=== PATIENT | male | born 1945 | race Caucasian/White ===

== ENCOUNTER 2018-05-18 23:07 | Inpatient (IN) | payer OTHER ==
[2018-05-18] MEDS ORDERED: CEFEPIME 2 GM VIAL ONE (23:43)
[2018-05-18] MEDS ORDERED: NA CHLORIDE 0.9% 250 ML ONE (23:43)
[2018-05-18] MEDS ORDERED: VANCOMYCIN 1 GM/VIAL ONE (23:43)
--- NOTE | 2018-05-18 23:44 | EDPHYS ---
Physician Documentation [facility] Name: Lorenzo Jim Age: 73 yrs Sex: Male : 1945 Arrival Date: 05/18/2018 Time: 23:07 Bed 3 Private MD: ED Physician Aamir John HPI: 05/18 23:36 This 73 yrs old Male presents to ER via Unassigned with complaints of CPR. [facility] 23:36 Preceding the arrest, the patient collapsed, was dyspneic. The arrest occurred at [facility]. Pre-hospital course: The arrest was witnessed Bystanders at the scene performed CPR. EMS care prior to arrival: initiation of ACLS, peripheral IV, oxygen, 0 minutes elapsed prior to ACLS. It is unknown whether or not the patient has had similar symptoms in the past. Historical: - Allergies: 05/19 00:11 No Known Allergies; fc - Home Meds: 00:36 Amaryl 2 mg Oral tab 1 tab once daily [Active]; aspirin 81 mg Oral chew 1 tab once fc daily [Active]; Coreg 12.5 mg Oral tab 1 tab 2 times per day [Active]; Cozaar 50 mg Oral tab 1 tab once daily [Active]; hydrochlorothiazide 12.5 mg Oral cap 1 cap once daily [Active]; Lantus 100 unit/mL Sub-Q soln 10 unit daily [Active]; Lasix 40 mg Oral tab 1 tab once daily [Active]; lisinopril 40 mg Oral tab 1 tab once daily [Active]; metformin 500 mg Oral tab 1 tab 2 times per day [Active]; Norvasc 2.5 mg Oral tab 1 tab once daily [Active]; potassium chloride 20 mEq Oral TbER 1 tab once daily [Active]; Xarelto 20 mg oral tab 1 tab once daily [Active]; - PMHx: 00:11 CHF; Hypertension; Atrial Fib; Pneumonia; Diabetes - IDDM; fc - Immunization history:: Adult Immunizations unknown. - Social history:: Smoking status: unknown. - Family history:: not pertinent. - Ebola Screening: : Unable to complete screening because. ROS: 05/18 23:36 Cardiovascular: Positive for pea. [facility] Respiratory: Positive for shortness of breath, at rest. Unable to obtain ROS due to cpr. Exam: 23:36 Back: No spinal tenderness. No costovertebral tenderness. Full range of motion. aneta 23:36 Constitutional: The patient appears in obvious distress, severely distressed. 23:36 Head/face: Noted is pale. 23:36 Cardiovascular: Rate: actual rate is 0 bpm, Rhythm: asystole, Pulses: not palpable, Heart sounds: none, Edema: 1+ edema to level of left midcalf and right midcalf, JVD: is noted bilaterally, to 3 cm. 23:36 Respiratory: Respiratory rate: no spontaneous, bagged 23:36 Abdomen/GI: Inspection: distension, Bowel sounds: absent, Palpation: distended, Liver: no appreciated palpable abnormalities, Hernia: not appreciated. Vital Signs: 23:12 BP 213 / 129; Pulse 127; Pulse Ox 92% on ETT ambu; Weight 104.33 kg; Height 6 ft. 3 in. fc (190.50 cm); Pain 0/10; 23:17 BP 159 / 97; Pulse 105; Pulse Ox 93% on ETT ambu; fc 23:25 BP 143 / 104; Pulse 97; Pulse Ox 100% on ETT ambu; fc 23:29 BP 141 / 100; Pulse 96; Temp 99.0(R); Pulse Ox 100% on ETT ambu; fc 23:38 BP 117 / 83; Pulse 85; Resp 18; Pulse Ox 100% on 60% FiO2 ETT vent; fc 23:50 BP 93 / 61; Pulse 84; Resp 16 A; Temp 97.6(C); Pulse Ox 99% on ETT vent; aa1 /04 00:00 BP 75 / 41; Pulse 72; Resp 18 A; Temp 98.5(C); Pulse Ox 96% on ETT vent; aa1 00:15 BP 68 / 54; Pulse 72; Resp 20 A; Temp 98.8(C); Pulse Ox 96% on ETT vent; aa1 00:25 BP 91 / 57; Pulse 69; Resp 20 A; Temp 98.8(C); Pulse Ox 96% on ETT vent; aa1 00:45 BP 116 / 62; Pulse 58; Resp 20 A; Temp 98.5(C); Pulse Ox 96% on ETT vent; aa1 01:00 BP 104 / 54; Pulse 55; Resp 18 A; Temp 98.3(C); Pulse Ox 94% on ETT vent; aa1 01:15 BP 102 / 61; Pulse 61; Resp 16 A; Temp 98.2(C); Pulse Ox 97% on ETT vent; aa1 01:50 BP 112 / 67; Pulse 73; Resp 20; Temp 97.9(C); Pulse Ox 94% on ETT vent; aa1 02:10 BP 121 / 66; Pulse 69; Resp 16 A; Temp 98.0(C); Pulse Ox 95% on ETT vent; aa1 02:22 BP 124 / 67; Pulse 70; Resp 18; Temp 98.0; Pulse Ox 96% on ETT vent; aa1 02:30 BP 124 / 82; Pulse 62; Resp 16 A; Temp 98.0(C); Pulse Ox 96% on ETT vent; aa1 05/18 23:12 Body Mass Index 28.75 (104.33 kg, 190.50 cm) fc Ventilator: 05/18 23:38 Fi02: 60%; Rate: 18min; T.V.: 600ml; Peep: 5cm; Mode: CMV; ET tube: 8.0 mm (Oral); Procedures: 23:40 Intubation: Intubated orally using # 4 Arian blade with 8.0 mm ETT. was successful [facility] on first attempt. Ventilated with ventilator. Central Line: the site was prepped with Betadine, in sterile fashion, a triple lumen catheter was inserted, in the right femoral vein, in 1 attempts. placement was verified, by blood return, the site was dressed with using sterile technique, the patient tolerated the procedure, well. 23:51 Peripheral line: by aseptic technique a peripheral line was placed in the left external [facility] jugular vein. MDM: 23:31 Patient medically screened. [facility] 23:40 Data reviewed: vital signs, nurses notes, lab test result(s), EKG, radiologic studies, [facility] CT scan, plain films. 05/18 23:35 Order name: Basic Metabolic Panel; Complete Time: 02:08 [facility] 05/18 23:35 Order name: CBC with Diff; Complete Time: 00:23 [facility] 05/18 23:35 Order name: LFT's; Complete Time: 02:08 [facility] 05/18 23:35 Order name: Magnesium; Complete Time: 02:08 [facility] 05/18 23:35 Order name: NT PRO-BNP; Complete Time: 02:08 [facility] 05/18 23:35 Order name: PT-INR; Complete Time: 00:23 [facility] 05/18 23:35 Order name: Troponin (emerg Dept Use Only); Complete Time: 02:08 [facility] 05/18 23:35 Order name: Blood Culture Adult (2) [facility] 05/18 23:35 Order name: Lactate; Complete Time: 00:23 [facility] 05/18 23:35 Order name: Procalcitonin; Complete Time: 02:08 [facility] 05/18 23:35 Order name: Urine Culture [facility] 05/18 23:35 Order name: ABG; Complete Time: 00:23 [facility] 05/18 23:50 Order name: Sputum Culture [facility] 05/19 00:45 Order name: Creatine Phosphokinase EDMS 05/19 00:45 Order name: Lactate EDMS 05/19 00:45 Order name: Magnesium EDMS 05/19 00:45 Order name: Phosphorus EDMS 05/19 00:45 Order name: NT PRO-BNP EDMS 05/19 00:45 Order name: Protime (+INR) EDMS 05/19 00:45 Order name: PTT, Activated Partial Thromb EDMS 05/19 00:45 Order name: T4 Free EDMS 05/19 00:45 Order name: Thyroid Stimulating Hormone EDMS 05/19 00:45 Order name: Comprehensive Metabolic Panel EDMS 05/19 00:45 Order name: Lipid Profile EDMS / 00:45 Order name: Troponin I EDMS / 00:46 Order name: Troponin I EDMS 05/19 00:46 Order name: ABG Arterial Blood Gas EDMS 05/19 00:46 Order name: CBC with Automated Diff EDMS 05/19 00:46 Order name: Procalcitonin EDMS / 02:26 Order name: Urine Dipstick--Ancillary (enter results) nm 05/18 23:35 Order name: XRAY Chest (1 view) [facility] 05/18 23:35 Order name: EKG; Complete Time: 23:36 [facility] 05/18 23:35 Order name: Cardiac monitoring; Complete Time: 23:55 [facility] 05/18 23:35 Order name: EKG - Nurse/Tech; Complete Time: 23:55 [facility] 05/18 23:35 Order name: IV Saline Lock; Complete Time: 23:55 [facility] 05/18 23:35 Order name: Labs collected and sent; Complete Time: 23:56 [facility] 05/18 23:35 Order name: O2 Per Protocol; Complete Time: 23:56 [facility] 05/18 23:35 Order name: O2 Sat Monitoring; Complete Time: 23:56 [facility] 05/18 23:35 Order name: Urine Dipstick-Ancillary (obtain specimen); Complete Time: 02:11 [facility] 05/18 23:35 Order name: Central Line Kit; Complete Time: 01:07 [facility] 05/18 23:35 Order name: CT Traumagram (Head C Spine CAP wo con) [facility] 05/19 00:45 Order name: CONS Physician Consult EDMS 05/19 00:45 Order name: CONS Physician Consult EDMS 05/19 00:46 Order name: NPO EDMS Administered Medications: 23:05 Drug: EPINEPHrine 0.1mg/mL 1:10,000 1 mg {Note: per Beverly CHIRINOS to right IO.} Route: IVP; Site: [facility]; 23:08 Follow up: Response: Cardiac rhythm is unchanged aa1 23:05 Drug: Calcium Chloride 1 grams {Note: by Beverly CHIRINOS to right IO.} Route: IVP; Site: [facility]; 23:12 Follow up: Response: Cardiac rhythm changed aa1 23:06 Drug: Sodium Bicarbonate 1 amp {Note: by Beverly CHIRINOS to right IO.} Route: IVP; Site: Other; 23:12 Follow up: Response: Cardiac rhythm changed aa1 23:08 Drug: EPINEPHrine 0.1mg/mL 1:10,000 1 mg {Note: By Beverly CHIRINOS.} Route: IVP; Site: left jugular; 23:12 Follow up: Response: Cardiac rhythm changed aa1 23:35 Drug: NS 0.9% (20 ml/kg) 20 ml/kg Route: IV; Rate: 1 bolus; Site: left jugular; aa05/19 01:05 Follow up: IV Status: Completed infusion; IV Intake: 2000ml aa1 00:10 Drug: NS 0.9% 1000 ml Route: IV; Rate: 125 ml/hr; Site: left antecubital; aa1 01:04 Follow up: IV Status: Infusion continued upon admission aa1 00:12 Drug: Levophed (4 mg/250 mL D5W 4 mcg/min Route: IV; Rate: calculated rate; Site: right aa1 femoral; 00:23 Follow up: Rate change 15 mcg/min aa1 00:50 Follow up: Rate change 10 mcg/min aa1 01:02 Follow up: IV Status: Infusion continued upon admission aa03 18:59 Follow up: Rate change 5 mcg/min aa1 02:30 Follow up: Rate change 2.5 mcg/min aa1 00:15 Drug: vancoMYCIN 1 grams Route: IVPB; Infused Over: 2 hrs; Site: right femoral; aa 01:59 Follow up: IV Status: Completed infusion aa1 00:16 Drug: Cefepime 2 grams Route: IVPB; Rate: 200 ml/hr; Infused Over: 30 mins; Site: right aa1 femoral; 00:46 Follow up: IV Status: Completed infusion aa 02:11 Drug: Pepcid 20 mg Route: IVP; Site: right femoral; aa1 02:40 Follow up: Response: No adverse reaction aa1 02:11 Drug: Solu-CORTEF 100 mg Route: IVP; Site: right femoral; aa1 02:40 Follow up: Response: No adverse reaction aa1 Point of Care Testing: Blood Glucose: 05/18 23:28 Blood Glucose: 364 mg/dL; fc Ranges: Critical Glucose Levels:Adult <50 mg/dl or >400 mg/dl <40 mg/dl or >180 mg/dl Disposition: 05/18/18 23:44 Hospitalization ordered by Diann Glasgow for Inpatient Admission. Preliminary diagnosis are Respiratory failure, unspecified, Cardiac arrest, Cardiac arrest, cause unspecified - PEA, Atrial fibrillation and flutter, Pneumonia due to other specified bacteria, Unspecified kidney failure, Type 1 diabetes mellitus. - Bed requested for Intensive Care Unit. - Status is Inpatient Admission. tl1 - Condition is Critical. - Problem is new. - Symptoms have improved. UTI on Admission? No Signatures: Dispatcher [employer] EDMS Marisa Javed RN RN Beverly Rhodes RN RN aa1 Aamir John MD MD cha Chretien, Felicia, RN RN Debra Domingo RN RN tl1 Corrections: (The following items were deleted from the chart) 23:49 23:44 Hospitalization Ordered by Diann Glasgow MD for Inpatient Admission. Preliminary aneta diagnosis is Respiratory failure, unspecified; Cardiac arrest; Cardiac arrest, cause unspecified - PEA. Bed requested for Intensive Care Unit. Status is Inpatient Admission. Condition is Critical. Problem is new. Symptoms have improved. UTI on Admission? No. aneta 05/19 00:56 05/18 23:49 05/18/2018 23:44 Hospitalization Ordered by Diann Glasgow MD for Inpatient Admission. Preliminary diagnosis is Respiratory failure, unspecified; Cardiac arrest; Cardiac arrest, cause unspecified - PEA; Atrial fibrillation and flutter. Bed requested for Intensive Care Unit. Status is Inpatient Admission. Condition is Critical. Problem is new. Symptoms have improved. UTI on Admission? No. aneta 05/19 02:10 00:56 05/18/2018 23:44 Hospitalization Ordered by Diann Glasgow MD for Inpatient aneta Admission. Preliminary diagnosis is Respiratory failure, unspecified; Cardiac arrest; Cardiac arrest, cause unspecified - PEA; Atrial fibrillation and flutter. Bed requested for Intensive Care Unit. Status is Inpatient Admission. Condition is Critical. Problem is new. Symptoms have improved. UTI on Admission? No. mw 02:49 02:10 05/18/2018 23:44 Hospitalization Ordered by Diann Glasgow MD for Inpatient tl1 Admission. Preliminary diagnosis is Respiratory failure, unspecified; Cardiac arrest; Cardiac arrest, cause unspecified - PEA; Atrial fibrillation and flutter; Pneumonia due to other specified bacteria; Unspecified kidney failure; Type 1 diabetes mellitus. Bed requested for Intensive Care Unit. Status is Inpatient Admission. Condition is Critical. Problem is new. Symptoms have improved. UTI on Admission? No. aneta
[2018-05-18 23:48] LABS: Arterial Blood Carboxyhemoglob 1.5 % (0-1.5); Blood Gas Oxyhemoglobin 96.7 % (94-97); Blood O2 Saturation 99.2 % (92-98.5)
[2018-05-19 00:06] LABS: Absolute Lymphocytes (CBC) 1.7 K/uL (0.7-4.9); Absolute Monocytes 0.9 K/uL (0.1-1.3); Absolute Neutrophil 9.9 K/uL (1.8-8.0); Basophils % 0.4 % (0-1.3); Eosinophils % 0.2 % (0-4.4); Hematocrit 51.7 % (39.6-49.0); Lymphocytes % 13.4 % (15.3-44.8); MPV 11.7 fL (7.6-11.3); Monocytes % 7.5 % (3.3-12.3)
[2018-05-19 00:07] LABS: Protime INR 1.31
[2018-05-19] MEDS ORDERED: NOREPINEPHRINE 4 MG/4 ML VIAL ONE (00:26)
[2018-05-19] MEDS ORDERED: NA CHLORIDE 0.9% 250 ML ONE (00:27)
[2018-05-19 00:36] LABS: Bilirubin Direct 1.2 mg/dL (0-0.2); Bilirubin Total 1.6 mg/dL (0.2-1.0); Potassium 3.8 mmol/L (3.5-5.1); Protein, Total 5.5 g/dL (6.4-8.2)
[2018-05-19] MEDS ORDERED: NOREPINEPHRINE 4 MG in D5W 250 ML IV PRN (00:36)
[2018-05-19] MEDS ORDERED: PANTOPRAZOLE 40 MG INJ IVP ONE (00:36)
[2018-05-19] MEDS ORDERED: SODIUM CHLORIDE 0.9% 10ML INJ IV PRN (00:36)
[2018-05-19] MEDS ORDERED: ONDANSETRON 4 MG/2 ML VIAL IV PRN (00:36)
[2018-05-19] MEDS ORDERED: MAGNESIUM HYDROXIDE 8% 30 ML PO PRN (00:36)
[2018-05-19 00:37] LABS: Magnesium 2.2 mg/dL (1.8-2.4); Troponin (Emerg Dept Use Only) 0.06 ng/mL (0.0-0.045)
[2018-05-19] MEDS: NA CHLORIDE 0.9% 1,000 ML IV SCH ×2 (01:00→14:11)
[2018-05-19] MEDS: FENTANYL CITR 100 MCG/2 ML IV PRN (01:14)
[2018-05-19] MEDS ORDERED: LORazepam 2 MG/ML VIAL ONE (01:24)
[2018-05-19] MEDS: IPRATROPIUM BROM 0.5MG/2.5ML NEB SCH ×4 (02:00→19:39)
[2018-05-19] MEDS: ALBUTEROL 2.5 MG/3 ML NEB SOL NEB SCH ×4 (02:00→19:39)
[2018-05-19] MEDS ORDERED: HYDROCORTISONE SUC 100 MG INJ ONE (02:15)
[2018-05-19] MEDS ORDERED: FAMOTIDINE 20 MG/2 ML VIAL IV ONE (02:15)
[2018-05-19] MEDS ORDERED: NS 0.9% VIAL 10 ML ONE (02:16)
--- NOTE | 2018-05-19 02:50 | ER ---
Nurse's Notes [facility] Name: Lorenzo Jim Age: 73 yrs Sex: Male : 1945 Arrival Date: 05/18/2018 Time: 23:07 Bed 3 Private MD: Diagnosis: Respiratory failure, unspecified;Cardiac arrest;Cardiac arrest, cause unspecified-PEA;Atrial fibrillation and flutter;Pneumonia due to other specified bacteria;Unspecified kidney failure;Type 1 diabetes mellitus Presentation: 05/18 23:04 Presenting complaint: EMS states: that pt was last known seen at 1500. Pt has been fc noncompliant with any of his medications x 1 week. States that pt was found with agonal breathing and ems called. Upon their arrival pt was sats of 80%. Pt given Versed for intubation. Pulse lost during intubation. Care prior to arrival: Oral intubation, 7.5 ETT 24 at the teeth CPR via thumper and is still in progress Medication(s) given: Versed 5 mg IVP, 400 ml NS, and Epi x 3 IV initiated. IO to right fib Glucose check: 510 Oxygen administered. via AMBU bag PEA on monitor. Compressions began prior to arrival. 23:04 Method Of Arrival: EMS: [facility] 23:04 Acuity: FACUNDO 1 fc 23:04 Transition of care: patient was received from another setting of care (long-term care facility), [facility]. Onset of symptoms was May 18, 2018. Risk Assessment: Do you want to hurt yourself or someone else? Patient reports no desire to harm self or others. Initial Sepsis Screen: Does the patient meet any 2 criteria? Altered Mental Status. HR > 90 bpm. Yes Does the patient have a suspected source of infection? Yes: Productive cough/pneumonia. Historical: - Allergies: 05/19 00:11 No Known Allergies; fc - Home Meds: 00:36 Amaryl 2 mg Oral tab 1 tab once daily [Active]; aspirin 81 mg Oral chew 1 tab once fc daily [Active]; Coreg 12.5 mg Oral tab 1 tab 2 times per day [Active]; Cozaar 50 mg Oral tab 1 tab once daily [Active]; hydrochlorothiazide 12.5 mg Oral cap 1 cap once daily [Active]; Lantus 100 unit/mL Sub-Q soln 10 unit daily [Active]; Lasix 40 mg Oral tab 1 tab once daily [Active]; lisinopril 40 mg Oral tab 1 tab once daily [Active]; metformin 500 mg Oral tab 1 tab 2 times per day [Active]; Norvasc 2.5 mg Oral tab 1 tab once daily [Active]; potassium chloride 20 mEq Oral TbER 1 tab once daily [Active]; Xarelto 20 mg oral tab 1 tab once daily [Active]; - PMHx: 00:11 CHF; Hypertension; Atrial Fib; Pneumonia; Diabetes - IDDM; fc - Immunization history:: Adult Immunizations unknown. - Social history:: Smoking status: unknown. - Family history:: not pertinent. - Ebola Screening: : Unable to complete screening because. Screenin/03 23:04 Abuse screen: Denies threats or abuse. Nutritional screening: No deficits noted. fc Tuberculosis screening: No symptoms or risk factors identified. Assessment: 23:07 Reassessment: Reassessment: Pt presents to ED via EMS with CPR in progress. aa1 Cardiovascular: Rhythm is PEA. Respiratory: Airway via oral intubation Respiratory effort is assisted via ambu bag Sputum is thick, purulent. Derm: Skin is dusky, mottled, Skin temperature is cool. 23:10 Reassessment: Pt becoming hard to bag due to thick secretions. Dr John removed ETT fc placed by EMS and reinserted. 23:12 Reassessment: Pt regained pulse at this time. Afib noted on the monitor with palpable aa1 pulse. 23:20 General: Appears ill, Behavior is unresponsive. Pain: Unable to use pain scale. Patient aa1 is unresponsive. Neuro: Level of Consciousness is unresponsive, Pupils are non-reactive. Cardiovascular: Heart tones S1 S2 present Capillary refill is sluggish JVD is present bilaterally Rhythm is irregular. Respiratory: Airway via oral intubation Respiratory effort is assisted with ventilator Respiratory pattern is symmetrical. GI: Abdomen is round. : Genitalia appear normal. EENT: Poor dentition noted. Derm: Skin is intact, is healthy with good turgor, Skin is dry, Skin is pale, Skin temperature is warm. 05/19 01:00 Reassessment: Patient appears in no apparent distress at this time. No changes from aa1 previously documented assessment. Awaiting CT scan. 01:14 Reassessment: Pt beginning to open eyes intermittently. Per Dr. Glasgow's orders, will aa1 administer Ativan and Fentanyl IVP for sedation management. 01:20 Reassessment: Pt taken to CT at this time. aa1 01:53 Reassessment: Patient appears in no apparent distress at this time. No changes from aa1 previously documented assessment. Pt back from CT. Awaiting admission to ICU. 02:10 Reassessment: Patient appears in no apparent distress at this time. No changes from aa1 previously documented assessment. Report given to Tigist in ICU. Awaiting RT for ventilator set up and assistance with transport upstairs. 02:43 Reassessment: Patient appears in no apparent distress at this time. No changes from aa1 previously documented assessment. Pt admitted to ICU at this time with tech, RN, and RT. Vital Signs: 05/18 23:12 BP 213 / 129; Pulse 127; Pulse Ox 92% on ETT ambu; Weight 104.33 kg; Height 6 ft. 3 in. fc (190.50 cm); Pain 0/10; 23:17 BP 159 / 97; Pulse 105; Pulse Ox 93% on ETT ambu; fc 23:25 BP 143 / 104; Pulse 97; Pulse Ox 100% on ETT ambu; fc 23:29 BP 141 / 100; Pulse 96; Temp 99.0(R); Pulse Ox 100% on ETT ambu; fc 23:38 BP 117 / 83; Pulse 85; Resp 18; Pulse Ox 100% on 60% FiO2 ETT vent; fc 23:50 BP 93 / 61; Pulse 84; Resp 16 A; Temp 97.6(C); Pulse Ox 99% on ETT vent; aa1 05/19 00:00 BP 75 / 41; Pulse 72; Resp 18 A; Temp 98.5(C); Pulse Ox 96% on ETT vent; aa1 00:15 BP 68 / 54; Pulse 72; Resp 20 A; Temp 98.8(C); Pulse Ox 96% on ETT vent; aa1 00:25 BP 91 / 57; Pulse 69; Resp 20 A; Temp 98.8(C); Pulse Ox 96% on ETT vent; aa1 00:45 BP 116 / 62; Pulse 58; Resp 20 A; Temp 98.5(C); Pulse Ox 96% on ETT vent; aa1 01:00 BP 104 / 54; Pulse 55; Resp 18 A; Temp 98.3(C); Pulse Ox 94% on ETT vent; aa1 01:15 BP 102 / 61; Pulse 61; Resp 16 A; Temp 98.2(C); Pulse Ox 97% on ETT vent; aa1 01:50 BP 112 / 67; Pulse 73; Resp 20; Temp 97.9(C); Pulse Ox 94% on ETT vent; aa1 02:10 BP 121 / 66; Pulse 69; Resp 16 A; Temp 98.0(C); Pulse Ox 95% on ETT vent; aa1 02:22 BP 124 / 67; Pulse 70; Resp 18; Temp 98.0; Pulse Ox 96% on ETT vent; aa1 02:30 BP 124 / 82; Pulse 62; Resp 16 A; Temp 98.0(C); Pulse Ox 96% on ETT vent; aa1 05/18 23:12 Body Mass Index 28.75 (104.33 kg, 190.50 cm) ED Course: 05/18 23:04 Patient has correct armband on for positive identification. Bed in low position. fc Intubation: 7.5 Fr. ETT placed orally. Ventilated with Ambu bag. DIRECTOR ADVANCED. Maintain EMS IV. IO to right fib. 23:04 Arm band placed on Patient placed in an exam room. fc 23:07 Patient arrived in ED. ds1 23:08 Inserted saline lock: 20 gauge in left antecubital area, using aseptic technique. fc ,using aseptic technique. per Lino CHIRINOS. 23:08 Inserted saline lock: 18 gauge in left EJ, using aseptic technique. ,using aseptic fc technique. per Dr John. 23:10 Assisted provider with intubation using 8.0 mm ETT via oral route. ET tube secured at fc 24cm at the lips. Set up intubation tray. Intubated by Aamir John MD Placement verified by CXR, CO2 detector w/ + color change, auscultating bilateral breath sounds. 23:17 Assisted provider with central line placement. Set up central line tray. Triple lumen fc line placed in right femoral. Line placed by Aamir John MD Placement verified by blood return, Dressed with Tegaderm, Blood was collected. Time-out/Briefing performed prior to start of procedure? Yes. Was handwashing/sanitizing done immediately prior to procedure? Yes. Was patient positioned to in a way to prevent air embolism? Yes. Was procedure site sterilized? Yes, with Was the site allowed to dry? Yes. Was local anesthetic and/or sedation utilized? Yes. During the procedure, did the Practitioner(s) maintain a sterile field? Yes. Were unused ports clamped during insertion? Yes. Was a 2nd qualified MD obtained after 3 unsuccessful insertion attempts? N/A. Was blood aspirated from each lumen? Yes. After the procedure, did the Practitioner(s) clean the site and apply a sterile dressing? Yes. 23:31 Aamir John MD is Attending Physician. aneta 23:38 De Souza cath inserted, using sterile technique, 16 Fr., by correctional facility nurse, balloon inflated, to gravity drainage, returned clear yellow urine. 23:43 Diann Glasgow MD is Hospitalizing Provider. [facility] 23:45 Triage completed. 23:50 NGT: inserted 16 Fr. via right nare. other by Debra Domingo RN verified placement of aa1 air over stomach, to intermittent suction. Returned gastric contents. 03/04 00:12 XRAY Chest (1 view) In Process Unspecified. EDMS 00:23 Notified ED physician of a critical lab result(s). lactate of 4.7. fc 00:36 Notified ED physician of a critical lab result(s). glucose 528. 01:19 Beverly Rhodes, RN is Primary Nurse. aa1 01:20 RN/CEMENTER MACHINE JOINER escort patient out of department to CT scan with Ambu bag, oxygen, cardiac aa1 monitor, Respiratory therapist. 01:59 CT Traumagram (Head C Spine CAP wo con) Sent. aa1 02:28 Patient admitted, IV remains in place. aa1 02:45 One-on-one care X 210 minutes. aa1 02:49 RN/CEMENTER MACHINE JOINER escort patient out of department to ICU with Ambu bag, oxygen, director for [employer], aa1 Respiratory therapist, records technician. Administered Medications: 03 23:05 Drug: EPINEPHrine 0.1mg/mL 1:10,000 1 mg {Note: per Beverly CHIRINOS to right IO.} Route: IVP; Site: Other; 23:08 Follow up: Response: Cardiac rhythm is unchanged aa1 23:05 Drug: Calcium Chloride 1 grams {Note: by Beverly CHIRINOS to right IO.} Route: IVP; Site: Other; 23:12 Follow up: Response: Cardiac rhythm changed aa1 23:06 Drug: Sodium Bicarbonate 1 amp {Note: by Beverly CHIRINOS to right IO.} Route: IVP; Site: Other; 23:12 Follow up: Response: Cardiac rhythm changed aa1 23:08 Drug: EPINEPHrine 0.1mg/mL 1:10,000 1 mg {Note: By Beverly CHIRINOS.} Route: IVP; Site: left fc jugular; 23:12 Follow up: Response: Cardiac rhythm changed aa1 23:35 Drug: NS 0.9% (20 ml/kg) 20 ml/kg Route: IV; Rate: 1 bolus; Site: left jugular; aa05/19 01:05 Follow up: IV Status: Completed infusion; IV Intake: 2000ml aa1 00:10 Drug: NS 0.9% 1000 ml Route: IV; Rate: 125 ml/hr; Site: left antecubital; aa1 01:04 Follow up: IV Status: Infusion continued upon admission aa1 00:12 Drug: Levophed (4 mg/250 mL D5W 4 mcg/min Route: IV; Rate: calculated rate; Site: right aa1 femoral; 00:23 Follow up: Rate change 15 mcg/min aa1 00:50 Follow up: Rate change 10 mcg/min aa1 01:02 Follow up: IV Status: Infusion continued upon admission aa1 01:59 Follow up: Rate change 5 mcg/min aa1 02:30 Follow up: Rate change 2.5 mcg/min aa1 00:15 Drug: vancoMYCIN 1 grams Route: IVPB; Infused Over: 2 hrs; Site: right femoral; aa1 01:59 Follow up: IV Status: Completed infusion aa1 00:16 Drug: Cefepime 2 grams Route: IVPB; Rate: 200 ml/hr; Infused Over: 30 mins; Site: right aa1 femoral; 00:46 Follow up: IV Status: Completed infusion aa1 02:11 Drug: Pepcid 20 mg Route: IVP; Site: right femoral; aa 02:40 Follow up: Response: No adverse reaction aa1 02:11 Drug: Solu-CORTEF 100 mg Route: IVP; Site: right femoral; aa1 02:40 Follow up: Response: No adverse reaction aa1 Point of Care Testing: Blood Glucose: 05/18 23:28 Blood Glucose: 364 mg/dL; fc Ranges: Intake: 05/19 01:05 IV: 2000ml; Total: 2000ml. aa1 Ventilator: 05/18 23:38 Fi02: 60%; Rate: 18min; T.V.: 600ml; Peep: 5cm; Mode: CMV; ET tube: 8.0 mm (Oral); Outcome: 23:44 Decision to Hospitalize by Provider. [facility] 05/19 02:48 Outcome Resuscitation successful aa1 Admitted to ICU accompanied by nurse, accompanied by tech, via stretcher, room 7, with oxygen, on monitor, with chart, Report called to TARAN Escoto Condition: stable 02:49 Patient left the ED. tl1 Signatures: Dispatcher [employer] EDMS Beverly Rhodes, RN RN aa1 Aamir John MD MD cha Chretien, Felicia, RN RN Shyla Roldan [facility] Debra Domingo RN RN tl1 Corrections: (The following items were deleted from the chart) 00:01 05/18 23:59 BP 141 / 100; Pulse 96bpm; Pulse Ox 100% ET / Ambu; Temp 99.0F Rectal; fc 05/19 05:45 01:53 Reassessment: Pt back from CT aa1 aa1 05:45 05/18 23:12 Reassessment: Pt regained pulse at this time. Sinus tach noted on the aa1 monitor with palpable pulse aa1
[2018-05-19 03:26] LABS: Urine Blood 3+ (NEG); Urine Glucose 2+ (NEG); Urine Protein 3+ (NEG); Urine Specific Gravity >1.030 (1.005-1.030)
[2018-05-19] MEDS: PANTOPRAZOLE 40 MG INJ IVP SCH ×3 (04:39→20:00)
[2018-05-19] MEDS ORDERED: PIPERACIL/TAZO 3.375 GM VIAL IV ONE (05:17)
[2018-05-19] MEDS ORDERED: NA CHLORIDE 0.9% 100 ML ONE (05:18)
[2018-05-19] MEDS ORDERED: INSULIN 70/30 100 UNITS/ML SQ ONE ×2 (05:30→06:33)
[2018-05-19] MEDS ORDERED: GLUCAGON 1 MG/VIAL IM PRN ×2 (05:30→09:23)
[2018-05-19] MEDS ORDERED: D50W 25 GM/50 ML SYRINGE IV PRN ×2 (05:30→09:23)
[2018-05-19] MEDS ORDERED: ALBUMIN HUMAN 25% 100 ML IV ONE (05:32)
[2018-05-19] MEDS ORDERED: PIPER/TAZO/NS 3.375gm 3.375 GM/100 ML BAG IVPB SCH (06:00)
[2018-05-19] MEDS ORDERED: LORazepam 2 MG/ML VIAL IV ONE (06:04)
[2018-05-19] MEDS ORDERED: FENTANYL CITR 100 MCG/2 ML IV ONE (06:05)
[2018-05-19 06:33] LABS: Absolute Lymphocytes (CBC) 0.3 K/uL (0.7-4.9); Absolute Monocytes 0.7 K/uL (0.1-1.3); Absolute Neutrophil 11.8 K/uL (1.8-8.0); Basophils % 0.2 % (0-1.3); Hematocrit 46.1 % (39.6-49.0); Lymphocytes % 2.6 % (15.3-44.8); MPV 10.9 fL (7.6-11.3); Monocytes % 5.5 % (3.3-12.3); RBC Red Blood Cell Count 5.22 M/uL (4.33-5.43)
[2018-05-19 06:40] LABS: Protime INR 1.34
[2018-05-19 07:01] LABS: Blood Gas Oxyhemoglobin 92.1 % (94-97); Blood Gas RHB 15.2 %; Blood O2 Saturation 94.4 % (92-98.5)
[2018-05-19 07:08] LABS: Albumin 1.7 g/dL (3.4-5.0); Bilirubin Total 1.9 mg/dL (0.2-1.0); Magnesium 1.9 mg/dL (1.8-2.4); Phosphorus 3.2 mg/dL (2.5-4.9); Potassium 3.8 mmol/L (3.5-5.1); Protein, Total 4.7 g/dL (6.4-8.2); Thyroid Stimulating Hormone 0.676 uIU/mL (0.360-3.740); Troponin I 0.14 ng/mL (0.0-0.045)
[2018-05-19 07:09] LABS: Blood Morphology Comment NOTED (NOT SEEN); Burr Cells 2+; Platelet Estimate ADEQ
--- NOTE | 2018-05-19 07:37 | P.HP ---
Certification for Inpatient Patient admitted to: Inpatient With expected LOS: >2 Midnights Patient will require the following post-hospital care: None Practitioner: I am a practitioner with admitting privileges, knowledge of patient current condition, hospital course, and medical plan of care. Services: Services provided to patient in accordance with Admission requirements found in Title 42 Section 412.3 of the Code of Federal Regulations Patient History Date of Service: 05/19/18 Reason for admission: Cardiac arrest History of Present Illness: Patient is a 73-year-old gentleman who came into the hospital after cardiac arrest. Patient was at [facility]. He was seen around 3:24 p.m.. When they walked back into his room later on that day he had a lot of mucus and was short of breath. EMS was called out and he was in respiratory distress and needed to be intubated. He was given medication for sedation and he lost his pulse. Patient was initially intubated with a 7.5. However because of mucous secretions his ET was plugged up. He had to be reintubated. Patient was started on Levophed as he was hypotensive. CT scan confirmed pulmonary edema. Concern for aspiration. Patient was admitted to the hospital and started on IV Lasix, Levophed, and IV antibiotics to cover aspiration pneumonia. Patient BNP was also significantly elevated. Will check an echocardiogram this morning. Cardiology and Pulmonary consultation. Patient also has wounds on his lower extremity and wound healing Consult will be obtained. Allergies No Known Allergies Allergy (Verified 05/19/18 04:24) Home Medications: Amlodipine [Norvasc*] 2.5 mg PO DAILY 05/19/18 Aspirin Chewable [Aspirin Chewable*] 81 mg PO DAILY 05/19/18 Carboxymethylcellulose Sodium [Restore Plus] 1 gtt OPTH TID 05/19/18 Carvedilol [Coreg*] 12.5 mg PO BID 05/19/18 Furosemide 40 mg PO DAILY 05/19/18 Glimepiride [Amaryl*] 2 mg PO DAILY 05/19/18 Insulin Glargine,Hum.rec.anlog [Lantus] 10 unit SQ DAILY WITH BREAKFAST Lisinopril 40 mg PO DAILY 05/19/18 Losartan Potassium [Cozaar*] 50 mg PO DAILY 05/19/18 Metformin HCl [Glucophage] 500 mg PO BID 05/19/18 Potassium Chloride 20 meq PO DAILY 05/19/18 Rivaroxaban [Xarelto] 20 mg PO DAILY 05/19/18 hydroCHLOROthiazide [Hydrochlorothiazide*] 12.5 mg PO DAILY 05/19/18 - Past Medical/Surgical History Has patient received pneumonia vaccine in the past: No Diabetic: Yes -: HTN -: CHF -: atrial fibrillation -: influenza (05/14/18) -: IDDM -: chronic conjunctivitis -: delusional disorder Past Surgical History: Patient denies surgical history - Family History Mother History Unknown: Yes Father History Unknown: Yes - Social History Smoking Status: Unknown if ever smoked Place [facility] Review of Systems 10-point ROS is otherwise unremarkable Physical Examination - Vital Signs Temperature: 97.8 F Blood Pressure: 122/61 Pulse: 68 Respirations: 16 Pulse Ox (%): 100 - Physical Exam General: Unresponsive, Other (Intubated and sedated) HEENT: Atraumatic, PERRLA, Mucous membr. moist/pink, Other (ET tube in place), EOMI, Sclerae nonicteric Neck: Supple, 2+ carotid pulse no bruit, No LAD, Without JVD or thyroid abnormality Respiratory: Crackles/rales, Expiratory wheezes, Rhonchi/gurgles Cardiovascular: Regular rate/rhythm, Normal S1 S2, Systolic murmur Gastrointestinal: Normal bowel sounds, Soft and benign, Non-distended, No tenderness Musculoskeletal: No clubbing, No tenderness, Swelling Integumentary: No rashes, Skin breakdown, Tenderness/swelling, Erythema Neurological: Other (Patient is intubated and sedated and difficult to do a neurologic exam), Abnormal gait, Abnormal speech, Abnormal strength, Abnormal tone Lymphatics: No axilla or inguinal lymphadenopathy - Studies Laboratory Data (last 24 hrs) 05/18/18 23:15: PT 15.3 H, INR 1.31 05/18/18 23:15: WBC 12.6 H, Hgb 16.3, Hct 51.7 H, Plt Count 211 05/18/18 23:15: Sodium 138, Potassium 3.8, BUN 31 H, Creatinine 1.44 H, Glucose 528 H*, Magnesium 2.2, Total Bilirubin 1.6 H, AST 165 H, ALT 53, Alkaline Phosphatase 214 H Assessment & Plan - Problems (Diagnosis) (1) Septic shock Current Visit: Yes Status: Acute (2) Cardiogenic shock Current Visit: Yes Status: Acute (3) Cardiac arrest Current Visit: Yes Status: Acute (4) Aspiration pneumonia Current Visit: Yes Status: Acute (5) Type 2 diabetes mellitus Current Visit: Yes Status: Acute (6) Atrial fibrillation Current Visit: Yes Status: Acute - Plan Plan: 1. Echocardiogram 2. IV antibiotics 3. IV Levophed and continued to wean off 4. Nebs as needed 5. IV steroids 6. IV diuretics 7. Cardiology and Pulmonary consultation 8. Reassess neurologic status in 24 hr 9. Using fentanyl for sedation as patient is hypotensive. Hold off on Ativan and propofol. If blood pressure stabilizes will add Ativan 10. Strict blood pressure and blood sugar monitoring 11. Blood culture x2 12. Check lactic acid and procalcitonin and repeat BNP 13. Repeat ABGs in the morning 14. Repeat chest x-ray 15. GI and DVT prophylaxis Discharge Plan: [facility] Plan to discharge in: Greater than 2 days - Advance Directives Does patient have a Living Will: No Does patient have a Durable POA for Healthcare: No - Code Status/Comfort Care Code Status Assessed: Yes Code Status: Full Code Critical Care: Yes Time Spent Managing PTS Care (In Minutes): 90
--- NOTE | 2018-05-19 07:54 | RAD REPORT ---
EXAM DESCRIPTION: [place] Single View05/19/2018 12:03 am CLINICAL HISTORY: Chest pain COMPARISON: none FINDINGS: Small to moderate right and small left pleural effusions Moderate bilateral pulmonary opacities. The heart is mildly to moderately enlarged Endotracheal tube has its tip well above the amol. NG tube is present within the stomach IMPRESSION: Moderate bilateral pulmonary opacities which may represent pneumonia or pulmonary edema Small to moderate right and small left pleural effusions
[2018-05-19] MEDS: PIPER/TAZO/NS 3.375gm 3.375 GM/100 ML BAG IVPB SCH ×2 (08:33→17:24)
[2018-05-19] MEDS: FUROSEMIDE 40 MG/4 ML VIAL IV SCH ×2 (08:35→17:24)
[2018-05-19] MEDS: ENOXAPARIN 40 MG/0.4 ML SQ SCH (08:36)
--- NOTE | 2018-05-19 09:09 | EKG ---
Test Date: 2018-05-18 Test Time: 23:34:14 Bale Coverer: AG3 MEASUREMENT RESULTS: Intervals: Rate: 85 GA: QRSD: 142 QT: 414 QTc: 492 [place]: P: GA: QRS: 127 T: 12 INTERPRETIVE STATEMENTS: Atrial fibrillation with premature ventricular or aberrantly conducted complexes Right bundle branch block Septal infarct, age undetermined Lateral infarct, age undetermined Abnormal ECG No previous ECG available for comparison Electronically Signed On 05-19-18 09:08:49 OUTSOLE BEVELER by Adam Mensah
[2018-05-19] MEDS: INSULIN -REGULAR HUMAN 50 UNIT/0.5 ML ML SQ SCH ×3 (09:53→17:25)
[2018-05-19] MEDS ORDERED: KCL 20 MEQ/100 mL IVPB 20 MEQ/100 ML BAG IV SCH (10:00)
--- NOTE | 2018-05-19 12:24 | CON ---
Mr. Lorenzo Jim is a gentleman, who is post respiratory and subsequent cardiac arrest, now intuba aleena in the ICU. I am asked to advise on any further therapy for him. This gentleman has not had any available old medical records other than a medication list a brief description from the fpc . He lives in a fpc. He is in chronic atrial fibrillation and has congestive heart failure type medications prescribed to him, also diabetes medicines. He is legally a f[place] of the state, not capable of making his own medical decisions and no family members are available to discuss. We do n ot know what kind of involvement they have had in taking care of Mr. Jim. He was last seen to be in his normal state about 3 o'clock in the afternoon yesterday, May 18 around 11 o'clock when he was checked again, he was unresponsive. He was breathing, gurgling, and spitting up large amounts of phlegm. supervisor machine setter were called. At one point he was intubated and had to be reintubated for some reason. Apparently, the tube was full of secretions and somewhere in that time he became pulseless. Once r e-intubation was done and CPR was done, epi was given. He was back in atrial fibrillation, but he newman s not been shocked or defibrillated. Home Medications: Restore eyedrops, potassium chloride, amlodipine, metformin, lisinopril, furosemid e, hydrochlorothiazide, insulin, losartan, Coreg, aspirin, glimepiride, and rivaroxaban. No allergie s are known. We have no idea what kind of habits the patient has regarding caffeine, street drugs, t obacco, and alcohol. Physical Examination: General: The patient is comatose. He is intubated. He is in the ICU. No spontaneous motions. No posturing. HEENT: His pupils are very small, nearly pinpoint. His gaze is fixed upward. There were no doll's type reflex, did not try calorics. Lungs: Breath sounds are equal bilaterally. There are a lot of rales on both sides. Heart: Irregularly irregular. No significant murmur. The apical impulse is laterally displaced. Extremities: Mild edema. Distal pulses absent. Laboratory Data: Electrocardiogram was not available for review. Telemetry shows atrial fibrillatio n with a wide-complex. His chest x-ray shows pulmonary edema, cardiomegaly. There are no sternal wi res or pacing or defibrillator devices. Impression: Mr. Jim had a cardiac and respiratory arrest, probably from pulmonary edema. One no ticed that he may have had the flu last week. I do not know if he received antibiotics, but may have a post influenza pneumonia as well. The pulmonary edema pattern is more prominent on the right than the left, but I suspect it is pulmonary edema, not infection. He certainly could have aspirated dur ing that time. Right now, I think the biggest question is what is the status of his central nervous system. I am concerned that there is severe damage possibly irreversible. Neurological consult will be done. We can certainly diurese him. Do an echocardiogram and maximize medications to control CH F. Troponins are up, no doubt from his cardiopulmonary arrest. I do not think this is an acute molly nary syndrome. There are no plans to take him to the dental laboratory manager. His entire ability to recover depend s on the ability of his brain to recover. SYLVESTER/MODL Voice ID: [id number] Report ID: [id number]
--- NOTE | 2018-05-19 12:33 | P.CNS ---
Date of Consult: 05/19/18 Chief Complaint: Cardiac arrest History of Present Illness: Patient is 73 years of age from prison admitted with cardiorespiratory arrest he is currently on a ventilator unresponsive patient is not on any IV sedation the answer response noted from his extremities Allergies No Known Allergies Allergy (Verified 05/19/18 04:24) Home Medications: Amlodipine [Norvasc*] 2.5 mg PO DAILY 05/19/18 Aspirin Chewable [Aspirin Chewable*] 81 mg PO DAILY 05/19/18 Carboxymethylcellulose Sodium [Restore Plus] 1 gtt OPTH TID 05/19/18 Carvedilol [Coreg*] 12.5 mg PO BID 05/19/18 Furosemide 40 mg PO DAILY 05/19/18 Glimepiride [Amaryl*] 2 mg PO DAILY 05/19/18 Insulin Glargine,Hum.rec.anlog [Lantus] 10 unit SQ DAILY WITH BREAKFAST Lisinopril 40 mg PO DAILY 05/19/18 Losartan Potassium [Cozaar*] 50 mg PO DAILY 05/19/18 Metformin HCl [Glucophage] 500 mg PO BID 05/19/18 Potassium Chloride 20 meq PO DAILY 05/19/18 Rivaroxaban [Xarelto] 20 mg PO DAILY 05/19/18 hydroCHLOROthiazide [Hydrochlorothiazide*] 12.5 mg PO DAILY 05/19/18 - Past Medical/Surgical History Diabetic: Yes -: HTN -: CHF -: atrial fibrillation -: influenza (05/14/18) -: IDDM -: chronic conjunctivitis -: delusional disorder - Family History Mother History Unknown: Yes Father History Unknown: Yes - Social History Place of Residence: Care Home Review of Systems is unable to be obtained Physical Examination Temp Pulse Resp BP Pulse Ox 98.8 F 70 16 119/60 100 05/19/18 08:00 05/19/18 11:00 05/19/18 11:00 05/19/18 11:00 05/19/18 11:00 General: Comatose Respiratory: Clear to auscultation bilaterally Cardiovascular: Other (Venous stasis ulcers on both of his extremities), Edema Gastrointestinal: Normal bowel sounds Laboratory Data (last 24 hrs) 05/18/18 23:15: PT 15.3 H, INR 1.31 05/18/18 23:15: WBC 12.6 H, Hgb 16.3, Hct 51.7 H, Plt Count 211 05/18/18 23:15: Sodium 138, Potassium 3.8, BUN 31 H, Creatinine 1.44 H, Glucose 528 H*, Magnesium 2.2, Total Bilirubin 1.6 H, AST 165 H, ALT 53, Alkaline Phosphatase 214 H - Problems (1) Cardiac arrest Current Visit: Yes Status: Acute Plan: Patient is 73 years of age admitted with a cardiac arrest status post CPR currently on a ventilator labs reviewed white count is mildly elevated abnormal renal function chest x-ray is also normal possible pulmonary edema BNP is also elevated is overall prognosis is poor continue with present supportive therapy is a possibility of aspiration continue with antibiotics and Lasix echocardiogram ordered oxygenation satisfactory then settings reviewed
[2018-05-19] MEDS ORDERED: EPINEPHrine 1 MG/10 ML SYR IV ONE (12:34)
[2018-05-19] MEDS ORDERED: Caclcium Chloride 10% INJ SYR IV ONE (12:34)
--- NOTE | 2018-05-19 13:00 | RAD REPORT ---
EXAM DESCRIPTION: CT - Head C Spine Damien Flood - 05/19/2018 4:35 am CLINICAL HISTORY: The patient is 73 years old and is Male; PAIN TECHNIQUE: Axial computed tomography images of the head/brain and cervical spine without intravenous contrast. Sagittal and coronal reformatted images were created and reviewed. This CT exam was pe rformed using one or more of the following dose reduction techniques: automated exposure control, a djustment of the mA and/or kV according to patient size, and/or use of iterative reconstruction techn ique. COMPARISON: No relevant prior studies available. FINDINGS: Brain: There is diffuse cerebral atrophy present, consistent with this patient's age. There is patchy hypoattenuation of the deep white matter which is non-specific, but most lik shweta owing to chronic small vessel ischemic change in a patient of this age group. No intracranial hemorrhage, mass effect, or midline shift is seen. There are no extra-axial fluid collections. Subtle area of low attenuation within the right cerebellar hemisphere is present. Ventricles: Unremarkable. No ventriculomegaly. Skull: No acute fracture. Sinuses: Unremarkable as visualized. No acute sinusitis. Mastoid air cells: Unremarkable as visualized. No mastoid effusion. Vertebrae: The vertebral body heights and alignment are maintained. No acute fracture. Discs/spinal canal/neural foramina: Posterior osteophyte formation at C2-C3 is present causing m inimal canal narrowing. Mild anterior osteophyte formation with intervertebral disc space narrowing i s noted throughout. Soft tissues: The soft tissues are normal. Nasal cavity/septum: Fluid is noted within the nasal passages. Pleural space: A right pleural effusion is present. The lung apices are otherwise clear. Tubes, lines and devices: An endotracheal tube and enteric tube are partially visualized. IMPRESSION: 1. Area of low attenuation within the right cerebellar hemisphere suggesting an age-in determinate infarct. No intracranial hemorrhage. 2. No fracture or malalignment of the cervical spine. Mild spondylosis. Electronically signed by: Araceli English MD 05/19/2018 2:40 AM METAL HANGING HELPER Due to temporary technical issues with the PACS/Fluency reporting system, reports are being signed by the in house radiologist as a courtesy to ensure prompt reporting. The interpreting radiologist is f ully responsible for the content of the report.
--- NOTE | 2018-05-19 13:53 | ECHO ---
HEIGHT: 6 ft 0 in WEIGHT: 209 lb 0 oz DATE OF STUDY: 05/19/[address]: Diann Glasgow MD 2-DIMENSIONAL: YES M.MODE: YES DOPPLER: YES COLOR FLOW: YES TDS: NO PORTABLE: NO DEFINITY: NO BUBBLE STUDY: NO DIAGNOSIS: CONGESTIVE HEART FAILURE CARDIAC HISTORY: CATHERIZATION: NO SURGERY: NO PROSTHETIC VALVE: NO PACEMAKER: NO MEASUREMENTS (cm) DIASTOLIC (NORMALS) SYSTOLIC (NORMALS) IVSd 1.2 (0.6-1.2) LA Diam 4.5 (1.9-4.0) LVEF 20% LVIDd 5.9 (3.5-5.7) LVIDs 5.4 (2.0-3.5) %FS 9% LVPWd 1.1 (0.6-1.2) Ao Diam 3.5 (2.0-3.7) 2 DIMENSIONAL ASSESSMENT: RIGHT ATRIUM: DILATED LEFT ATRIUM: DILATED RIGHT VENTRICLE: DILATED LEFT VENTRICLE: DILATED TRICUSPID VALVE: NORMAL MITRAL VALVE: NORMAL PULMONIC VALVE: NORMAL AORTIC VALVE: NORMAL PERICARDIAL EFFUSION: MODERATE AORTIC ROOT: NORMAL LEFT VENTRICULAR WALL MOTION: SEVERE GLOBAL HYPOKINESIS. DOPPLER/COLOR FLOW: MILD AORTIC REGURGITATION. COMMENTS: FOUR CHAMBER DILATATION. SEVERLY DEPRESSED LEFT VENTRICULAR EJECTION FRACTION. MILD AORTIC REGURGITATION. MODERATE PERICARDIAL EFFUSION. LARGE LEFT PLEURAL EFFUSION. TECHNOLOGIST: YVON MARQUEZ
--- NOTE | 2018-05-19 15:32 | P.PN ---
Subjective Date of Service: 05/19/18 Primary Care Provider: custodial resident Chief Complaint: Cardiac arrest Subjective: Other (Patient sedated and intubated) Physical Examination - Vital Signs Temperature: 99.7 F Blood Pressure: 123/59 Pulse: 73 Respirations: 16 Pulse Ox (%): 100 - Physical Exam General: Other (Patient sedated and intubated) HEENT: Atraumatic Neck: Supple Respiratory: Clear to auscultation bilaterally Cardiovascular: Irregular heart rate/rhythm (Atrial fibrillation, rate controlled) Gastrointestinal: Normal bowel sounds, Soft and benign, Non-distended Neurological: Other (Patient intubated sedated) - Studies Laboratory Data (last 24 hrs) 05/18/18 23:15: PT 15.3 H, INR 1.31 05/18/18 23:15: WBC 12.6 H, Hgb 16.3, Hct 51.7 H, Plt Count 211 05/18/18 23:15: Sodium 138, Potassium 3.8, BUN 31 H, Creatinine 1.44 H, Glucose 528 H*, Magnesium 2.2, Total Bilirubin 1.6 H, AST 165 H, ALT 53, Alkaline Phosphatase 214 H Microbiology Data (last 24 hrs): 05/18/18 23:15 Sputum Gram Stain - Final Assessment & Plan Discharge Plan: Fdc Plan to discharge in: Greater than 2 days Physician Review Additional Text: Impression: Acute respiratory failure with cardiopulmonary arrest status post CPR likely secondary to septic/cardiogenic shock with possible aspiration pneumonia complicated with noted bilateral pleural effusion and pericardial effusion secondary to pulmonary edema with acute on chronic systolic CHF, ejection fraction 20%, now with likely underlying anoxic brain injury History of CVA Atrial fibrillation, chronic Diabetes mellitus type 2, insulin-dependent History of CVA per CT scan Plan: Patient continues on vasopressor therapy. Patient also on antibiotic therapy to cover for possible aspiration pneumonia. Will discuss case further with pulmonology and Cardiology. Patient with poor prognosis. Nurses report patient is a [place]. We need to discuss with social media project manager about this in detail. We need to confirm code status. Will continue supportive measures. Patient on IV Lasix for his CHF. Will provide insulin sliding scale. Will continue to monitor closely. Will order EEG to evaluate for possible anoxic brain injury. Will consult neurology. Continue to monitor lab and x-rays. Time Spent Managing Pts Care (In Minutes): 55
[2018-05-19] MEDS: CARBOXYMETHYLCELLULOSE SODIUM OPTH SCH (20:00)
[2018-05-20] MEDS: FUROSEMIDE 40 MG/4 ML VIAL IV SCH ×3 (00:48→17:14)
[2018-05-20] MEDS: PIPER/TAZO/NS 3.375gm 3.375 GM/100 ML BAG IVPB SCH ×3 (00:48→17:15)
[2018-05-20] MEDS: IPRATROPIUM BROM 0.5MG/2.5ML NEB SCH ×4 (02:40→20:10)
[2018-05-20] MEDS: ALBUTEROL 2.5 MG/3 ML NEB SOL NEB SCH ×4 (02:40→20:10)
[2018-05-20 05:40] LABS: Absolute Lymphocytes (CBC) 0.8 K/uL (0.7-4.9); Absolute Neutrophil 16.5 K/uL (1.8-8.0); Basophils % 0.4 % (0-1.3); Hematocrit 49.3 % (39.6-49.0); Lymphocytes % 4.6 % (15.3-44.8); Monocytes % 5.3 % (3.3-12.3); RBC Red Blood Cell Count 5.73 M/uL (4.33-5.43)
[2018-05-20 06:01] LABS: Albumin 1.9 g/dL (3.4-5.0); Bilirubin Total 1.7 mg/dL (0.2-1.0); Magnesium 1.9 mg/dL (1.8-2.4); Potassium 3.4 mmol/L (3.5-5.1); Protein, Total 5.2 g/dL (6.4-8.2)
[2018-05-20] MEDS: KCL 20 MEQ/100 mL IVPB 20 MEQ/100 ML BAG IV SCH ×2 (07:23→09:29)
[2018-05-20] MEDS: INSULIN -REGULAR HUMAN 50 UNIT/0.5 ML ML SQ SCH ×4 (07:23→17:32)
[2018-05-20] MEDS: NA CHLORIDE 0.9% 1,000 ML IV SCH (07:26)
--- NOTE | 2018-05-20 08:44 | RAD REPORT ---
EXAM DESCRIPTION: [place] Single View05/20/2018 6:33 am CLINICAL HISTORY: shortness of breath COMPARISON: May 18, 2018 FINDINGS: At the very top of the image is what may be the tip of an endotracheal tube. If the tube i s in place then it lies about 10 centimeters from the amol. Nasogastric tube is present within the stomach. Allowing for differences in inspiration there probably has been no significant change in the bilatera l pulmonary opacities. The heart remains enlarged. Pleural effusions are unchanged
[2018-05-20] MEDS: CARBOXYMETHYLCELLULOSE SODIUM OPTH SCH (09:00)
[2018-05-20] MEDS: PANTOPRAZOLE 40 MG INJ IVP SCH ×2 (09:24→21:13)
[2018-05-20] MEDS: ENOXAPARIN 40 MG/0.4 ML SQ SCH (09:29)
[2018-05-20] MEDS: VANCOMYCIN 1.75 GM in NA CHLORIDE 0.9% 500 ML IVPB SCH (09:47)
--- NOTE | 2018-05-20 11:25 | P.PN ---
Subjective Date of Service: 05/20/18 Primary Care Provider: halfway resident Chief Complaint: Cardiac arrest Subjective: Other (Patient intubated. Patient off sedation with no significant change. Patient off vasopressor. Vital signs stable. T-max 100.3) Physical Examination - Vital Signs Temperature: 98.9 F Blood Pressure: 141/98 Pulse: 105 Respirations: 20 Pulse Ox (%): 96 - Physical Exam General: Other (Patient intubated. Patient postures to the upper extremity with pain. Patient not on any type of sedation.) HEENT: Other (Patient has upward gaze bilateral) Neck: Supple Respiratory: Clear to auscultation bilaterally Cardiovascular: Abnormal pulses (Atrial fibrillation, rate stable) Gastrointestinal: Normal bowel sounds, Soft and benign, Non-distended Neurological: Other (As above.) - Studies Microbiology Data (last 24 hrs): 05/18/18 23:15 Sputum Gram Stain - Final Medications List Reviewed: Yes Assessment & Plan Discharge Plan: Other (Will need to consider long-term acute care facility placement verses other) Plan to discharge in: Greater than 2 days Physician Review Additional Text: Impression: Acute respiratory failure with cardiopulmonary arrest status post CPR likely secondary to septic/cardiogenic shock with possible aspiration pneumonia complicated with noted bilateral pleural effusion and pericardial effusion secondary to pulmonary edema with acute on chronic systolic CHF, ejection fraction 20%, now with likely underlying anoxic brain injury Atrial fibrillation, chronic Diabetes mellitus type 2, 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 Patient off vasopressor. Vancomycin added due to abnormal blood culture. Patient on Zosyn and vancomycin at this time. Pharmacy to monitor and adjust. Will increase Lovenox 1 milligram/kilogram subcu twice daily for his atrial fibrillation. Will continue to monitor closely. EEG done yesterday. Await recommendations by neurology. Will discuss further with Neurology. Patient may require long-term acute care facility if his condition remains unchanged. Will discuss with pulmonology. Cardiology plans for no further cardiac workup. Prognosis poor. If prognosis continues to worsen, will need to discuss with legal guardian about starting process of readdress seen advanced directives and possible withdrawal of care. This will have to go through the legal system since he is a [place] the state. Will discuss further with manager social media about options. Atrial fibrillation, chronic: Will monitor closely. Will increase Lovenox to 1 milligram/kilograms subcu twice daily. Diabetes mellitus type 2, insulin-dependent: Will continue Accu-Cheks and sliding scale. 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 Will need to consider recheck CT scan to reassess brain function. Acute renal injury suspect chronic renal disease: Will check renal ultrasound. Will continue with IV fluids. Elevated liver function, etiology unknown: Likely liver failure related to CHF and current condition. Will check liver ultrasound. Will send for hepatitis panel. Will monitor function closely. Time Spent Managing Pts Care (In Minutes): 55
--- NOTE | 2018-05-20 12:03 | P.PN ---
Subjective Date of Service: 05/20/18 Primary Care Provider: longterm resident Chief Complaint: Cardiac arrest No change patient is comatosed. Patient is also posturing Review of Systems is unable to be obtained Physical Examination - Vital Signs Temperature: 98.9 F Blood Pressure: 141/98 Pulse: 105 Respirations: 20 Pulse Ox (%): 96 - Physical Exam Respiratory: Clear to auscultation bilaterally Cardiovascular: No edema, Regular rate/rhythm - Studies Microbiology Data (last 24 hrs): 05/18/18 23:15 Sputum Gram Stain - Final Medications List Reviewed: Yes Assessment & Plan - Problems (Diagnosis) (1) Cardiac arrest Current Visit: Yes Status: Acute Plan: Patient admitted with cardiac arrest unresponsive posturing oxygenation satisfactory vital signs stable on 35% oxygen cultures are negative white count is mildly elevated recommend DNR with withdrawal of care Physician Review Additional Text: Impression: Acute respiratory failure with cardiopulmonary arrest status post CPR likely secondary to septic/cardiogenic shock with possible aspiration pneumonia complicated with noted bilateral pleural effusion and pericardial effusion secondary to pulmonary edema with acute on chronic systolic CHF, ejection fraction 20%, now with likely underlying anoxic brain injury Atrial fibrillation, chronic Diabetes mellitus type 2, 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 Patient off vasopressor. Vancomycin added due to abnormal blood culture. Patient on Zosyn and vancomycin at this time. Pharmacy to monitor and adjust. Will increase Lovenox 1 milligram/kilogram subcu twice daily for his atrial fibrillation. Will continue to monitor closely. EEG done yesterday. Await recommendations by neurology. Will discuss further with Neurology. Patient may require long-term acute care facility if his condition remains unchanged. Will discuss with pulmonology. Cardiology plans for no further cardiac workup. Prognosis poor. If prognosis continues to worsen, will need to discuss with legal guardian about starting process of readdress seen advanced directives and possible withdrawal of care. This will have to go through the legal system since he is a [place] of the state. Will discuss further with social staff worker about options. Atrial fibrillation, chronic: Will monitor closely. Will increase Lovenox to 1 milligram/kilograms subcu twice daily. Diabetes mellitus type 2, insulin-dependent: Will continue Accu-Cheks and sliding scale. 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 Will need to consider recheck CT scan to reassess brain function. Acute renal injury suspect chronic renal disease: Will check renal ultrasound. Will continue with IV fluids. Elevated liver function, etiology unknown: Likely liver failure related to CHF and current condition. Will check liver ultrasound. Will send for hepatitis panel. Will monitor function closely.
[2018-05-20] MEDS: NACHLORIDE 0.45% 1,000 ML IV SCH (12:20)
--- NOTE | 2018-05-20 12:44 | RAD REPORT ---
EXAM DESCRIPTION: US - Renal Ultrasound-Complete - 05/20/2018 12:37 pm CLINICAL HISTORY: . Chronic renal disease COMPARISON: May 19, 2018 cat scan FINDINGS: The right kidney measures 12 cm with a normal echotexture. 2.2 centimeters cyst The left kidney measures 12 cm with a normal echotexture. 1.7 centimeters cyst Hydronephrosis is not seen. A De Souza catheter is present within a collapsed bladder. The prostate gland is enlarged IMPRESSION: Relatively small bilateral renal cysts No hydronephrosis
--- NOTE | 2018-05-20 13:34 | PN ---
Subjective: Mr. Jim was admitted after cardiac and pulmonary arrest, was seen on 05/19/2018 by Mike Mensah and has elevated troponin. Echocardiogram showed an ejection fraction of 20%. Mr. Jim 's mental status remains the same, unresponsive. EEG has been done. We are awaiting the results of that prior to make a final decision. Meanwhile we will continue congestive heart failure treatment a nd respiratory support. SUAD/MODChuck Voice ID: [id number] Report ID: [id number]
--- NOTE | 2018-05-20 14:34 | EEG ---
CHART: [id number] TEST ID#: [id number] DATE OF STUDY: 05/19/2018 THE EEG WAS RECORDED PORTABLE IN THE ICU ON A 14 CHANNEL MACHINE. ELECTRODES WERE APPLIED IN THE USUAL MANNER USING THE INTERNATIONAL 10-20 SYSTEM. THERE IS NO WELL DEFINED POSTERIOR DOMINANT RHYTHM. LOW-VOLTAGE 15-20 HZ ACTIVITY IS DIFFUSELY EXPRESSED IN ALL REGIONS. LOW TO MODERATE VOLTAGE 2.5-3 HZ ACTIVITY IS EXPRESSED PERIODICALLY IN THE LEFT AND RIGHT VENTROFRONTAL REGIONS. THERE ARE NO FOCAL OR LATERALIZING FEATURES. NO EPILEPTIFORM ACTIVITY APPEARS. SLEEP DID NOT OCCUR. HYPERVENTILATION WAS NOT PERFORMED. PHOTIC STIMULATION WAS NOT PEFORMED. IMPRESSION: THIS IS A MODERATELY ABNORMAL EEG DUE TO A MODERATELY SLOW BACKGROUND AND NO POSTERIOR DOMINANT RHYTHM. THIS IS A NON-SPECIFIC FINDING INDICATING THE PRESENCE OF A MODERATE DIFFUSE DISTURBANCE IN CEREBRAL DYSFUNCTION.
[2018-05-20] MEDS: POLYVINYL ALCOHOL 1.4% 15 ML OPTH SCH ×2 (17:14→21:14)
[2018-05-20] MEDS ORDERED: KCL 20 MEQ/100 mL IVPB 20 MEQ/100 ML BAG IV SCH (20:00)
[2018-05-20] MEDS: ENOXAPARIN 100 MG/ML SYR SQ SCH (21:12)
--- NOTE | 2018-05-20 22:01 | CON ---
Reason For Consultation: Consultation called because of severe altered mental status and poor respon siveness after cardiac arrest. History Of Present Illness: Mr. Jim is a 73-year-old patient who comes into the hospit al from [facility] after an event where he was found unresponsive. He appa rently was seen around 3:24 p.m. and later when he was checked in on, the patient was found short of breath, poor responsiveness. Emergency Room Services found the patient to be in respiratory distress , requiring ventilatory support. There was an intubation attempt made initially, which was unsuccess ful and somewhere in the process, the patient's pulse was lost and he received Levophed. For a perio d of time, he was hypotensive and when he was brought into the emergency room, CT scan of the chest i dentified pulmonary edema. He was treated with Lasix and IV antibiotics for aspiration and admitted to the ICU. Since his admission, he has had extensor posturing to stimulation to his extremities. H e has slightly behavioral event and he has had a gag reflex with minimally reactive pupils. His head CT scan on admission showed no acute ischemic or hemorrhagic change. However, there was an area of low attenuation in the right cerebellar hemisphere suggesting an age indeterminate infarct and so it is possible it could be more acute or subacute or chronic, but age indeterminate. There is no hemorr hagic change. No fracture seen in the cervical region or abnormalities identified there. His arteri al blood gas after his intubation showed a pH of 7.25, pCO2 of 61.5 and PO2 of 258. His blood work s ubsequently is consistent with sepsis showing band neutrophils of 44, white count elevated to 18.3 wi th 90% neutrophils. His procalcitonin is elevated to 6.86 and lactic acid elevated to 4.1. The barry ent is a fischer of the [facility] and he does have, however, siblings that are not interactive with staff at this point. Past Medical History: Hypertension, congestive heart failure, atrial fibrillation, insulin-dependent diabetes mellitus, delusional disorder, chronic conjunctivitis and recent influenza on May 14, 2018. Family History: Not known. Social History: The patient resides in a skilled nursing and unable to determine if there is alcohol, t obacco, or drug use. Allergies: NO KNOWN DRUG ALLERGIES. Medications: Norvasc 2.5 mg daily, aspirin 81 mg daily, Restore Plus 1 drop 3 times a day on each ey e, Coreg 12.5 mg twice daily, furosemide 40 mg daily, Amaryl 2 mg daily, Lantus 10 units subcutaneous with breakfast, lisinopril 40 mg daily, Cozaar 50 mg daily, Glucophage 500 mg twice daily, potassium 20 mEq daily, Xarelto 20 mg daily, hydrochlorothiazide 12.5 mg daily. Review of Systems: Unable to complete as the patient is intubated and has no response to verbal stimulation or interacti on. Physical Examination: Vital signs: Blood pressure 149/81, pulse 110, respiratory rate 16 to 20, temperature 100.4, weight 209 pounds, height 6 feet. His FIO2 is 35, and he is breathing around 4 breaths on a set of 12. HEENT: Mr. Jim appears to be normocephalic. He is intubated. He had trauma. He has some bruis ing in the arms. Extremities: He has otherwise mild edema in the extremities. Abdomen: Soft. Neurological: He is intubated. No spontaneous movements of the arms or legs. He does spontaneously have some mild lower jaw and lower lip movements that rhythmically last about 5-7 seconds and recur intermittently. There is no tonic or clonic activity of the arms or legs. His arms are extended in extensor posturing and legs are extended, although tone is not as just slightly elevated. In terms o f cranial nerve examination, his pupils were around 3 mm and very sluggishly reactive. He does not a ppear to have doll's eye response. No visual threat response. He does have a gag response on suctio justine. He does not have a focal response to stimulation of his extremities, but some mild extension o f both upper extremities, very subtle extension to both legs with stimulation. Unable to assess his strength, coordination, or gait. Laboratory Studies: Labs have been reviewed. His recent chest x-ray shows enlarged heart, pleural e ffusions and opacities bilaterally that are unchanged from 2 days ago. Renal ultrasound shows small bilateral renal cysts. No hydronephrosis. Echocardiogram shows ejection fraction 30%, moderate thuy cardial effusion. Large left pleural effusion. His electroencephalogram is moderately slow backgrou nd. No posterior dominant rhythm consistent with moderate diffuse disturbance in cerebral function. He does have fast activity in the cortical region. Assessment: Mr. Jim is a 73-year-old patient with moderate hypoxic ischemic encephalopathy follo wing cardiopulmonary resuscitation. His EEG does show some cortical functioning and his neurological examination show extensor posturing consistent with the brainstem dysfunction. The patient is a war d of the state. Plan: The patient would be best served by long-term acute care. It is unclear his prognosis for goo d recovery at this point, which is likely to be actually poor for good recovery. However, the patien t may continue in his current state for an extended period of time, which is difficult to determine a t this point. But he will likely require ventilatory support intermediate frame tender. Further neurological evalua tion may be assisted by a repeat head CT scan to rule out any cerebral edema which at this point is m aybe less likely since the EEG shows cortical activity and he has more brainstem dysfunction. The maria c izaguirre will be followed as needed. JEREMÍAS Voice ID: [id number] Report ID: [id number]
[2018-05-21] MEDS: NACHLORIDE 0.45% 1,000 ML IV SCH (00:24)
[2018-05-21] MEDS: PIPER/TAZO/NS 3.375gm 3.375 GM/100 ML BAG IVPB SCH ×3 (00:25→18:27)
[2018-05-21] MEDS: FUROSEMIDE 40 MG/4 ML VIAL IV SCH ×5 (00:25→22:20)
[2018-05-21] MEDS: IPRATROPIUM BROM 0.5MG/2.5ML NEB SCH ×4 (01:54→19:51)
[2018-05-21] MEDS: ALBUTEROL 2.5 MG/3 ML NEB SOL NEB SCH ×4 (01:54→19:51)
[2018-05-21 05:38] LABS: Absolute Lymphocytes (CBC) 0.6 K/uL (0.7-4.9); Absolute Monocytes 0.8 K/uL (0.1-1.3); Absolute Neutrophil 19.2 K/uL (1.8-8.0); Basophils % 0.2 % (0-1.3); Hematocrit 46.7 % (39.6-49.0); Lymphocytes % 3.1 % (15.3-44.8); MPV 10.7 fL (7.6-11.3); Monocytes % 3.9 % (3.3-12.3)
[2018-05-21] MEDS: INSULIN -REGULAR HUMAN 50 UNIT/0.5 ML ML SQ SCH ×4 (06:00→18:41)
[2018-05-21 06:12] LABS: Albumin 1.9 g/dL (3.4-5.0); Bilirubin Total 1.6 mg/dL (0.2-1.0); Magnesium 1.9 mg/dL (1.8-2.4); Potassium 3.7 mmol/L (3.5-5.1); Protein, Total 5.1 g/dL (6.4-8.2)
[2018-05-21 07:11] LABS: Blood Morphology Comment NOT SEEN (NOT SEEN); Urine White Blood Cell Casts OK
[2018-05-21 07:12] LABS: Platelet Estimate ADEQ
--- NOTE | 2018-05-21 08:39 | RAD REPORT ---
EXAM DESCRIPTION: RAD - Chest Single View - 05/21/2018 7:12 am CLINICAL HISTORY: Follow-up aspiration pneumonia, pleural effusion Chest pain. COMPARISON: Chest Single View dated 05/20/2018; Chest Single View dated 05/18/2018 FINDINGS: Portable technique limits examination quality. Tip of the ET tube is above the amol. Enteric tube descends into the upper abdomen. There has been mild to moderate improvement bibasilar lung opacities since the comparative study. Trace pleural flui d is present bilaterally. Moderate cardiomegaly. IMPRESSION: Mild to moderate improvement in lung aeration since 05/20/2018.
[2018-05-21] MEDS: POLYVINYL ALCOHOL 1.4% 15 ML OPTH SCH ×3 (08:48→21:00)
[2018-05-21] MEDS: ENOXAPARIN 100 MG/ML SYR SQ SCH ×2 (08:49→21:28)
[2018-05-21] MEDS: VANCOMYCIN 1.75 GM in NA CHLORIDE 0.9% 500 ML IVPB SCH (08:49)
[2018-05-21] MEDS: PANTOPRAZOLE 40 MG INJ IVP SCH ×2 (08:49→21:29)
[2018-05-21] MEDS ORDERED: KCL 20 MEQ/100 mL IVPB 20 MEQ/100 ML BAG IV SCH (09:00)
[2018-05-21] MEDS: ACETAMINOPHEN 650MG/RECT SUPP RECT PRN ×2 (09:16→16:14)
--- NOTE | 2018-05-21 12:29 | P.PN ---
Subjective Date of Service: 05/21/18 Primary Care Provider: senior living resident Chief Complaint: Cardiac arrest Patient is unresponsive on a ventilator Review of Systems is unable to be obtained Physical Examination - Vital Signs Temperature: 99 F Blood Pressure: 163/98 Pulse: 115 Respirations: 14 Pulse Ox (%): 94 - Physical Exam General: Comatose Neck: Supple Respiratory: Clear to auscultation bilaterally Cardiovascular: Edema - Studies Microbiology Data (last 24 hrs): 05/18/18 23:15 Sputum Gram Stain - Final Medications List Reviewed: Yes Assessment & Plan - Problems (Diagnosis) (1) Cardiac arrest Current Visit: Yes Status: Acute Plan: Patient is status post cardiac arrest unresponsive no spontaneous movement plantar responses are no longer extensor or pupils dilated sluggish patient's kidney function is worse his dilated cardiomyopathy Dc IV fluids white count elevated blood cultures are positive id pending started patient on tube feed is only on 30% oxygen chest x-ray some interstitial changes Physician Review Additional Text: Impression: Acute respiratory failure with cardiopulmonary arrest status post CPR likely secondary to septic/cardiogenic shock with possible aspiration pneumonia complicated with noted bilateral pleural effusion and pericardial effusion secondary to pulmonary edema with acute on chronic systolic CHF, ejection fraction 20%, now with likely underlying anoxic brain injury Atrial fibrillation, chronic Diabetes mellitus type 2, 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 Patient off vasopressor. Vancomycin added due to abnormal blood culture. Patient on Zosyn and vancomycin at this time. Pharmacy to monitor and adjust. Will increase Lovenox 1 milligram/kilogram subcu twice daily for his atrial fibrillation. Will continue to monitor closely. EEG done yesterday. Await recommendations by neurology. Will discuss further with Neurology. Patient may require long-term acute care facility if his condition remains unchanged. Will discuss with pulmonology. Cardiology plans for no further cardiac workup. Prognosis poor. If prognosis continues to worsen, will need to discuss with legal guardian about starting process of readdress seen advanced directives and possible withdrawal of care. This will have to go through the legal system since he is a fischer of the state. Will discuss further with secondary social studies teacher about options. Atrial fibrillation, chronic: Will monitor closely. Will increase Lovenox to 1 milligram/kilograms subcu twice daily. Diabetes mellitus type 2, insulin-dependent: Will continue Accu-Cheks and sliding scale. 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 Will need to consider recheck CT scan to reassess brain function. Acute renal injury suspect chronic renal disease: Will check renal ultrasound. Will continue with IV fluids. Elevated liver function, etiology unknown: Likely liver failure related to CHF and current condition. Will check liver ultrasound. Will send for hepatitis panel. Will monitor function closely.
[2018-05-21] MEDS ORDERED: VITAL AF 1,000 ML BOT RTH SCH (14:00)
--- NOTE | 2018-05-21 16:06 | P.PN ---
Subjective Date of Service: 05/21/18 Primary Care Provider: long term resident Chief Complaint: Cardiac arrest Subjective: Other (No significant change since yesterday. Patient in atrial fibrillation, rate slightly increased) Physical Examination - Vital Signs Temperature: 99 F Blood Pressure: 182/67 Pulse: 131 Respirations: 24 Pulse Ox (%): 96 - Physical Exam General: Other (Patient intubated without sedation. Poor response. Some posturing with pain to upper extremity) HEENT: Other (Upward gaze noted) Respiratory: Crackles/rales Cardiovascular: Irregular heart rate/rhythm (Atrial fibrillation, rate slightly increased) Gastrointestinal: Normal bowel sounds, No tenderness, No masses, No rebound, No guarding Neurological: Other (As above) - Studies Microbiology Data (last 24 hrs): 05/18/18 23:15 Sputum Gram Stain - Final Medications List Reviewed: Yes Assessment & Plan Discharge Plan: LTAC Plan to discharge in: Greater than 2 days Physician Review Additional Text: Impression: Acute respiratory failure with cardiopulmonary arrest status post CPR likely secondary to septic/cardiogenic shock with possible aspiration pneumonia complicated with noted bilateral pleural effusion and pericardial effusion secondary to pulmonary edema with acute on chronic systolic CHF, ejection fraction 20%, and 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 Atrial fibrillation, chronic Diabetes mellitus type 2, 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 Patient remains on IV antibiotic therapy. Blood cultures pending. Continue with Lovenox at 1 milligram/kilogram subcu twice daily due to his atrial fibrillation. Patient with severe cardiomyopathy with ejection fraction of 20%. Patient may require medication for AFib. Will discuss case further with cardiology. Spoke with Neurology yesterday. EEG still shows some cortical activity. Will pursue long- term acute care facility placement. Patient with poor prognosis. Will consider rechecking CT of the head and repeat EEG the next couple of days to reassess brainstem function. Will discuss with Neurology again today. Atrial fibrillation, chronic: Will monitor closely. Will increase Lovenox to 1 milligram/kilograms subcu twice daily. Will discuss with cardiology. Diabetes mellitus type 2, insulin-dependent: Will continue Accu-Cheks and sliding scale. 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 Will consider rechecking CT of the head and EEG in the next couple of days to reassess. Will discuss further with Neurology. Acute renal injury suspect chronic renal disease: Continue IV fluids. Will consult Nephrology. Elevated liver function, etiology unknown: Likely liver failure related to CHF and current condition. Will monitor closely. Time Spent Managing Pts Care (In Minutes): 55
[2018-05-21] MEDS: METOPROLOL TARTRATE 5 MG/5 ML INJ IV PRN (18:28)
[2018-05-21] MEDS: ALBUMIN HUMAN 25% 100 ML IV SCH (21:55)
[2018-05-21] MEDS ORDERED: ALBUMIN HUMAN 25% 100 ML IV ONE (21:59)
[2018-05-22] MEDS: PIPER/TAZO/NS 3.375gm 3.375 GM/100 ML BAG IVPB SCH ×2 (01:12→09:00)
[2018-05-22] MEDS: ALBUTEROL 2.5 MG/3 ML NEB SOL NEB SCH ×4 (01:20→20:00)
[2018-05-22] MEDS: IPRATROPIUM BROM 0.5MG/2.5ML NEB SCH ×4 (01:20→20:00)
[2018-05-22] MEDS: INSULIN -REGULAR HUMAN 50 UNIT/0.5 ML ML SQ SCH ×5 (02:19→22:30)
[2018-05-22 05:40] LABS: Urine Appearance CLOUDY; Urine Bilirubin NEGATIVE (NEG); Urine Blood NEGATIVE (NEG); Urine Color DK YELLOW; Urine Glucose NEGATIVE (NEG); Urine Protein 1+ (NEG)
[2018-05-22 05:44] LABS: Urine Microscopic Reflex ORDER UMIC
[2018-05-22 05:54] LABS: Absolute Monocytes 1.2 K/uL (0.1-1.3); Absolute Neutrophil 17.5 K/uL (1.8-8.0); Basophils % 0.8 % (0-1.3); Hematocrit 53.4 % (39.6-49.0); Lymphocytes % 5.1 % (15.3-44.8); MPV 10.7 fL (7.6-11.3)
[2018-05-22 06:02] LABS: Calcium Oxalate Crystals- Ur FEW (NONE SEEN); Urine Bacteria 20-50 /HPF (NONE SEEN); Urine Culture Reflex Order NOT NEEDED; Urine RBC <5 /HPF (NONE SEEN)
[2018-05-22 06:17] LABS: Albumin 2.3 g/dL (3.4-5.0); Bilirubin Total 1.6 mg/dL (0.2-1.0); Magnesium 2.2 mg/dL (1.8-2.4); Phosphorus 4.8 mg/dL (2.5-4.9); Potassium 4.2 mmol/L (3.5-5.1); Protein, Total 5.9 g/dL (6.4-8.2); Thyroid Stimulating Hormone 0.869 uIU/mL (0.360-3.740)
[2018-05-22] MEDS: VANCOMYCIN 1.75 GM in NA CHLORIDE 0.9% 500 ML IVPB SCH (09:00)
--- NOTE | 2018-05-22 09:33 | P.PN ---
Subjective Date of Service: 05/22/18 Primary Care Provider: [facility] resident Chief Complaint: Cardiac arrest Subjective: Other (Patient remains intubated. No significant changes since yesterday.) Physical Examination - Vital Signs Temperature: 99.7 F Blood Pressure: 175/91 Pulse: 119 Respirations: 21 Pulse Ox (%): 98 - Physical Exam General: Other (Patient intubated. No significant change since yesterday. Still some posturing noted.) HEENT: Other (Upward eye gaze noted) Respiratory: Crackles/rales (To the bases) Cardiovascular: Irregular heart rate/rhythm (Atrial fibrillation, rate slightly elevated) Gastrointestinal: Normal bowel sounds, Non-distended Neurological: Other (Patient intubated without sedation. No significant response noted.) - Studies Microbiology Data (last 24 hrs): 05/18/18 23:15 Sputum Gram Stain - Final 05/18/18 23:15 Sputum Culture & Sensitivity - Final Staph Aureus Medications List Reviewed: Yes Assessment & Plan Discharge Plan: LTAC Plan to discharge in: Greater than 2 days Physician Review Additional Text: Impression: Acute respiratory failure with cardiopulmonary arrest status post CPR likely secondary to septic/cardiogenic shock with possible aspiration pneumonia complicated with noted bilateral pleural effusion and pericardial effusion secondary to pulmonary edema with acute on chronic systolic CHF, ejection fraction 20%, and 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 Atrial fibrillation, chronic with hypertension Diabetes mellitus type 2, 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 Patient remains on IV antibiotic therapy. Will discontinue vancomycin and Zosyn due to renal injury. Sputum culture positive for Staph aureus resistant to penicillin. Will change to IV Levaquin. Will monitor and adjust appropriately. Pharmacy to renally adjust medication. Patient continues on Lovenox. Metoprolol given p.r.n. for atrial fibrillation/hypertension. Will continue monitor closely. Patient with poor prognosis. Will continue to pursue long-term acute care facility placement. Will need to reach out to State Guardian to initiate this process. Will have social work help in this process. Atrial fibrillation, chronic with hypertension: Will monitor closely. Patient on Lovenox. Metoprolol to be given as needed. Diabetes mellitus type 2, insulin-dependent: Will continue Accu-Cheks and sliding scale. 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 Will consider rechecking CT of the head and EEG in the next couple of days to reassess. Will discuss further with Neurology. Acute renal injury suspect chronic renal disease: Nephrology consulted. Patient now off of vancomycin and Zosyn. Medications will need to be renally dosed. Will discuss further with nephrology Elevated liver function, etiology unknown: Likely liver failure related to CHF and current condition. Overall improved. Will monitor closely. Time Spent Managing Pts Care (In Minutes): 55
[2018-05-22] MEDS: PANTOPRAZOLE 40 MG INJ IVP SCH ×2 (09:37→21:53)
[2018-05-22] MEDS: METOPROLOL TARTRATE 5 MG/5 ML INJ IV PRN (09:37)
[2018-05-22] MEDS: FUROSEMIDE 40 MG/4 ML VIAL IV SCH ×3 (09:38→22:29)
[2018-05-22] MEDS: ENOXAPARIN 100 MG/ML SYR SQ SCH ×2 (09:38→21:51)
[2018-05-22] MEDS: POLYVINYL ALCOHOL 1.4% 15 ML OPTH SCH ×3 (09:39→21:52)
[2018-05-22] MEDS: Levofloxacin 250mg IV 250 MG/50 ML BAG IV SCH (09:43)
[2018-05-22] MEDS: ALBUMIN HUMAN 25% 100 ML IV SCH ×2 (09:57→21:51)
[2018-05-22] MEDS: SCOPOLAMINE HYDROBROMIDE PATCH TD SCH (15:15)
--- NOTE | 2018-05-22 23:08 | P.CNS ---
Date of Consult: 05/22/18 Reason for Consult: IGLESIA [facility] Care Provider: [facility] Chief Complaint: Cardiac arrest History of Present Illness: Pt is intubated and no family members, Hx obtained from chart A 73-year-old [place] resident , with PMHX of Afib, DM HTN and CHF presented after cardiac arrest pt was hypotesnive started on presers, found to have pul edema and also started on lasix Cr on admission 1.3 and trending up to 2.0 pt also found to have leuckocytosis with bandemia non-oliguric Allergies No Known Allergies Allergy (Verified 05/19/18 04:24) Home Medications: Amlodipine [Norvasc*] 2.5 mg PO DAILY 05/19/18 Aspirin Chewable [Aspirin Chewable*] 81 mg PO DAILY 05/19/18 Carboxymethylcellulose Sodium [Restore Plus] 1 gtt OPTH TID 05/19/18 Carvedilol [Coreg*] 12.5 mg PO BID 05/19/18 Furosemide 40 mg PO DAILY 05/19/18 Glimepiride [Amaryl*] 2 mg PO DAILY 05/19/18 Insulin Glargine,Hum.rec.anlog [Lantus] 10 unit SQ DAILY WITH BREAKFAST Lisinopril 40 mg PO DAILY 05/19/18 Losartan Potassium [Cozaar*] 50 mg PO DAILY 05/19/18 Metformin HCl [Glucophage] 500 mg PO BID 05/19/18 Potassium Chloride 20 meq PO DAILY 05/19/18 Rivaroxaban [Xarelto] 20 mg PO DAILY 05/19/18 hydroCHLOROthiazide [Hydrochlorothiazide*] 12.5 mg PO DAILY 05/19/18 - Past Medical/Surgical History Diabetic: Yes -: HTN -: CHF -: atrial fibrillation -: influenza (05/14/18) -: IDDM -: chronic conjunctivitis -: delusional disorder - Family History Mother History Unknown: Yes Father History Unknown: Yes - Social History Place of Residence: [facility] Physical Examination Temp Pulse Resp BP Pulse Ox 96.8 F 117 H 16 158/77 H 97 05/22/18 16:00 05/22/18 18:00 05/22/18 18:00 05/22/18 18:00 05/22/18 18:00 General: Comatose HEENT: Atraumatic, Normocephalic Neck: Supple, Without JVD or thyroid abnormality Respiratory: Clear to auscultation bilaterally Cardiovascular: Regular rate/rhythm, Normal S1 S2, Edema Gastrointestinal: Normal bowel sounds, Soft and benign Integumentary: No rashes - Problems (1) IGLESIA (acute kidney injury) Current Visit: Yes Status: Acute (2) Cardiac arrest Current Visit: Yes Status: Acute Conclusions/Impression: IGLESIA likely Vanco toxicity +/- Ischemic ATN off pressers now agree to hold vanco and zosyn non-oliguric renal US no hydro UPC 0.6, no bld F/U serology S/p cardiac arrest intubated CHF Ef 20% cont lasix DM as per primary HTn can start on metoprolol via NG tube Sepsis with bandemia bcx; H inflenzae cont levaquin AFib rate controlled
[2018-05-23] MEDS: ALBUTEROL 2.5 MG/3 ML NEB SOL NEB SCH ×4 (02:00→20:40)
[2018-05-23] MEDS: IPRATROPIUM BROM 0.5MG/2.5ML NEB SCH ×4 (02:00→20:40)
[2018-05-23 05:42] LABS: Absolute Lymphocytes (CBC) 0.9 K/uL (0.7-4.9); Absolute Monocytes 1.2 K/uL (0.1-1.3); Absolute Neutrophil 13.3 K/uL (1.8-8.0); Basophils % 0.2 % (0-1.3); Hematocrit 48.3 % (39.6-49.0); Lymphocytes % 6.1 % (15.3-44.8); Monocytes % 7.5 % (3.3-12.3); RBC Red Blood Cell Count 5.51 M/uL (4.33-5.43)
[2018-05-23 05:51] LABS: Albumin 2.4 g/dL (3.4-5.0); Magnesium 2.3 mg/dL (1.8-2.4); Potassium 3.2 mmol/L (3.5-5.1); Protein, Total 5.4 g/dL (6.4-8.2)
[2018-05-23] MEDS: INSULIN -REGULAR HUMAN 50 UNIT/0.5 ML ML SQ SCH ×3 (06:31→18:03)
[2018-05-23] MEDS: ALBUMIN HUMAN 25% 100 ML IV SCH ×2 (08:04→22:28)
[2018-05-23 08:11] LABS: Rheumatoid Factor NEG (NEG)
[2018-05-23] MEDS: Levofloxacin 250mg IV 250 MG/50 ML BAG IV SCH (10:03)
[2018-05-23] MEDS: ENOXAPARIN 100 MG/ML SYR SQ SCH ×2 (10:03→22:49)
[2018-05-23] MEDS: PANTOPRAZOLE 40 MG INJ IVP SCH ×2 (10:03→22:48)
[2018-05-23] MEDS: POLYVINYL ALCOHOL 1.4% 15 ML OPTH SCH ×3 (10:04→21:00)
[2018-05-23] MEDS: FUROSEMIDE 40 MG/4 ML VIAL IV SCH ×3 (10:05→23:00)
[2018-05-23] MEDS: ACETAMINOPHEN 650MG/RECT SUPP RECT PRN (10:30)
--- NOTE | 2018-05-23 10:34 | P.PN ---
Subjective Date of Service: 05/23/18 Primary Care Provider: [facility] resident Chief Complaint: Cardiac arrest Subjective: Other (increase secretions noted) Physical Examination - Vital Signs Temperature: 99.8 F Blood Pressure: 154/80 Pulse: 109 Respirations: 17 Pulse Ox (%): 97 - Physical Exam General: Other (Patient intubated. No changes noted.) HEENT: Other (Upward gaze noted) Neck: Supple Respiratory: Crackles/rales (Bilateral) Cardiovascular: Irregular heart rate/rhythm (Atrial fibrillation, rate better controlled) Gastrointestinal: Normal bowel sounds, Soft and benign, Non-distended Neurological: Other (Patient intubated. No significant change in neuro status.) - Studies Microbiology Data (last 24 hrs): 05/18/18 23:15 Blood - Blood Aerobic Blood Culture - Final Haemophilus Influenza Iii 05/18/18 23:15 Blood - Blood Gram Stain - Final 05/18/18 23:15 Blood - Blood Anaerobic Blood Culture - Final Haemophilus Influenza Iii 05/18/18 23:15 Blood - Blood Gram Stain - Final 05/18/18 23:23 Blood - Blood Aerobic Blood Culture - Final Haemophilus Influenza Iii 05/18/18 23:23 Blood - Blood Gram Stain - Final 05/18/18 23:23 Blood - Blood Anaerobic Blood Culture - Final No growth in 5 days. 05/18/18 23:15 Sputum Gram Stain - Final 05/18/18 23:15 Sputum Culture & Sensitivity - Final Staph Aureus 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 Atrial fibrillation, chronic with hypertension Diabetes mellitus type 2, 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, age indeterminate Acute renal injury suspect chronic renal disease Elevated liver function etiology unknown Plan: Acute respiratory failure with cardiopulmonary arrest status post CPR likely secondary to septic/cardiogenic shock with possible aspiration pneumonia with noted sputum culture positive for Staph aureus and blood culture positive for Haemophilus influenza complicated with noted bilateral pleural effusion and pericardial effusion secondary to pulmonary edema with acute on chronic systolic CHF, ejection fraction 20%, and 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 Antibiotics adjusted yesterday. Patient on IV Levaquin. Will add IV Rocephin due to blood culture. Will add basal insulin due to elevated blood sugar. Will continue to monitor closely. Patient with poor prognosis. Will continue to pursue long-term acute care facility placement. Social work got in contact with state guardian to initiate process. Await approval for long-term acute care facility placement. Atrial fibrillation, chronic with hypertension: Will monitor closely. Patient on Lovenox. Metoprolol to be given as needed. Diabetes mellitus type 2, insulin-dependent: Will add basal insulin. Oral feeds adjusted. Dietary to adjusted as well. Will continue Accu-Cheks and sliding scale. 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 Will consider rechecking CT of the head and EEG in the next couple of days to reassess. Will discuss further with Neurology. Acute renal injury suspect chronic renal disease: Nephrology consulted. Patient now off of vancomycin and Zosyn. Medications will need to be renally dosed. Will discuss further with nephrology Elevated liver function, etiology unknown: Likely liver failure related to CHF and current condition. Overall improved. Will monitor closely. Time Spent Managing Pts Care (In Minutes): 55
[2018-05-23] MEDS: CEFTRIAXONE/SWI 1gm 1 GM/10 ML SYR IV SCH (11:36)
[2018-05-23] MEDS: GLUCERNA 1.2 CAL 1,000 ML BOT RTH SCH (12:15)
--- NOTE | 2018-05-23 12:18 | P.PN ---
Subjective Date of Service: 05/23/18 Primary Care Provider: [facility] resident Chief Complaint: Cardiac arrest Subjective: No new changes Cr improving good UO BP controlled K 3.2 , will replace na 146 with hyperglycemia BS control will start free water via NG F/u serology w/u Physical Examination - Vital Signs Temperature: 99.8 F Blood Pressure: 154/80 Pulse: 109 Respirations: 17 Pulse Ox (%): 97 - Physical Exam General: Comatose HEENT: Atraumatic Neck: Supple, Without JVD or thyroid abnormality Respiratory: Clear to auscultation bilaterally Cardiovascular: Regular rate/rhythm, Normal S1 S2, Edema Gastrointestinal: Normal bowel sounds, Soft and benign Integumentary: No rashes - Studies Microbiology Data (last 24 hrs): 05/18/18 23:15 Blood - Blood Aerobic Blood Culture - Final Haemophilus Influenza Iii 05/18/18 23:15 Blood - Blood Gram Stain - Final 05/18/18 23:15 Blood - Blood Anaerobic Blood Culture - Final Haemophilus Influenza Iii 05/18/18 23:15 Blood - Blood Gram Stain - Final 05/18/18 23:23 Blood - Blood Aerobic Blood Culture - Final Haemophilus Influenza Iii 05/18/18 23:23 Blood - Blood Gram Stain - Final 05/18/18 23:23 Blood - Blood Anaerobic Blood Culture - Final No growth in 5 days. 05/18/18 23:15 Sputum Gram Stain - Final 05/18/18 23:15 Sputum Culture & Sensitivity - Final Staph Aureus Medications List Reviewed: Yes Assessment And Plan - Current Problems (Diagnosis) (1) IGLESIA (acute kidney injury) Current Visit: Yes Status: Acute (2) Cardiac arrest Current Visit: Yes Status: Acute - Plan IGLESIA improving likely Vanco toxicity +/- Ischemic ATN off pressers now agree to hold vanco and zosyn non-oliguric renal US no hydro UPC 0.6, no bld F/U serology S/p cardiac arrest intubated CHF Ef 20% cont lasix hypernatremia will start free water via NG BS control DM as per primary HTn controlled now Sepsis with bandemia bcx; H inflenzae cont levaquin AFib rate controlled
[2018-05-23] MEDS ORDERED: POTASSIUM 25 MEQ EFFERV TAB PO ONE (12:19)
[2018-05-23] MEDS ORDERED: INSULIN GLARGINE 100 UNITS/ML SQ SCH (21:00)
[2018-05-24] MEDS: ALBUTEROL 2.5 MG/3 ML NEB SOL NEB SCH ×4 (01:40→20:00)
[2018-05-24] MEDS: IPRATROPIUM BROM 0.5MG/2.5ML NEB SCH ×4 (01:40→20:00)
[2018-05-24] MEDS: INSULIN -REGULAR HUMAN 50 UNIT/0.5 ML ML SQ SCH ×4 (02:00→17:19)
[2018-05-24 06:22] LABS: Absolute Neutrophil 10.4 K/uL (1.8-8.0); Basophils % 0.2 % (0-1.3); Eosinophils % 0.1 % (0-4.4); Hematocrit 44.9 % (39.6-49.0); MPV 10.8 fL (7.6-11.3); Monocytes % 7.7 % (3.3-12.3); RBC Red Blood Cell Count 5.11 M/uL (4.33-5.43)
[2018-05-24 06:45] LABS: Albumin 2.8 g/dL (3.4-5.0); Magnesium 2.3 mg/dL (1.8-2.4); Potassium 3.3 mmol/L (3.5-5.1); Protein, Total 5.6 g/dL (6.4-8.2)
[2018-05-24] MEDS: FUROSEMIDE 40 MG/4 ML VIAL IV SCH ×2 (08:28→20:56)
[2018-05-24] MEDS: CEFTRIAXONE/SWI 1gm 1 GM/10 ML SYR IV SCH (08:28)
[2018-05-24] MEDS: PANTOPRAZOLE 40 MG INJ IVP SCH ×2 (08:28→20:56)
[2018-05-24] MEDS: ENOXAPARIN 100 MG/ML SYR SQ SCH ×2 (08:29→20:57)
[2018-05-24] MEDS: ALBUMIN HUMAN 25% 100 ML IV SCH ×2 (08:29→20:56)
[2018-05-24] MEDS: INSULIN GLARGINE 100 UNITS/ML SQ SCH ×2 (08:31→20:57)
[2018-05-24] MEDS ORDERED: CEFTRIAXONE 1 GM/NS 50 ML 1 GM/50 ML BAG IV SCH (09:00)
--- NOTE | 2018-05-24 09:00 | P.PN ---
Subjective Date of Service: 05/24/18 Primary Care Provider: group home resident Chief Complaint: Cardiac arrest Subjective: No new changes Physical Examination - Vital Signs Temperature: 100.2 F Blood Pressure: 147/57 Pulse: 85 Respirations: 15 Pulse Ox (%): 100 - Physical Exam General: Other (intubated) HEENT: Other (upward gaze) Neck: Supple Respiratory: Crackles/rales Cardiovascular: Irregular heart rate/rhythm (Atrial fibrillation, rate controlled) Gastrointestinal: Normal bowel sounds, Soft and benign, Non-distended Integumentary: Other (Anasarca noted) Neurological: Other (Patient intubated. No sedation noted. Still with poor response) - Studies Microbiology Data (last 24 hrs): 05/18/18 23:15 Blood - Blood Aerobic Blood Culture - Final Haemophilus Influenza Iii 05/18/18 23:15 Blood - Blood Gram Stain - Final 05/18/18 23:15 Blood - Blood Anaerobic Blood Culture - Final Haemophilus Influenza Iii 05/18/18 23:15 Blood - Blood Gram Stain - Final 05/18/18 23:23 Blood - Blood Aerobic Blood Culture - Final Haemophilus Influenza Iii 05/18/18 23:23 Blood - Blood Gram Stain - Final 05/18/18 23:23 Blood - Blood Anaerobic Blood Culture - Final No growth in 5 days. 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 Atrial fibrillation, chronic with hypertension Diabetes mellitus type 2, 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, age indeterminate Acute renal injury suspect chronic renal disease with noted hypernatremia and hypokalemia Elevated liver function etiology unknown Plan: Acute respiratory failure with cardiopulmonary arrest status post CPR likely secondary to septic/cardiogenic shock with possible aspiration pneumonia with noted sputum culture positive for Staph aureus and blood culture positive for Haemophilus influenza complicated with noted bilateral pleural effusion and pericardial effusion secondary to pulmonary edema with acute on chronic systolic CHF, ejection fraction 20%, and 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 Continue with IV antibiotic therapy. Will increase basal insulin to twice daily for better blood sugar control. Patient still with poor prognosis. Still pursuing long-term acute care facility placement. Social work to help getting in contact with state guardian to initiate process. Atrial fibrillation, chronic with hypertension: Will monitor closely. Patient on Lovenox. Metoprolol to be given as needed. Diabetes mellitus type 2, insulin-dependent: Lantus increased BID. Dietary to adjusted nutrition as well. Will continue Accu-Cheks and sliding scale. 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 Will consider rechecking CT of the head and EEG in the next couple of days to reassess. Case discussed with Neurology. Patient with poor prognosis. Will continue to monitor closely. Acute renal injury suspect chronic renal disease with hypernatremia and hypokalemia: Nephrology consulted. Patient now off of vancomycin and Zosyn. Medications will need to be renally dosed. Continue with IV fluid adjustment per Nephrology Elevated liver function, etiology unknown: Likely liver failure related to CHF and current condition. Overall improved. Will monitor closely. Time Spent Managing Pts Care (In Minutes): 55
[2018-05-24] MEDS: POLYVINYL ALCOHOL 1.4% 15 ML OPTH SCH ×3 (09:13→21:00)
[2018-05-24] MEDS: Levofloxacin 250mg IV 250 MG/50 ML BAG IV SCH (09:57)
[2018-05-24] MEDS ORDERED: POTASSIUM 25 MEQ EFFERV TAB PO ONE ×2 (10:23→21:10)
--- NOTE | 2018-05-24 10:58 | RAD REPORT ---
EXAM DESCRIPTION: RAD - Chest Single View - 05/24/2018 10:44 am CLINICAL HISTORY: COPD, intubation, respiratory distress COMPARISON: May 21 TECHNIQUE: AP portable chest image was obtained 1041 hours . FINDINGS: Endotracheal tube remains in place. NG tube extends below the diaphragm, off the field of view. Heart size remains prominent. Medial bilateral lung base opacification remains. There is slight improvement in aeration of each lung base. Skin fold artifacts overlie the left-side of the chest. N o acute bony abnormality seen. No acute aortic findings suspected. IMPRESSION: Minimal improvement in the bilateral lung base opacification.
[2018-05-24] MEDS ORDERED: Levofloxacin500mg IV 500 MG/100 ML BAG IV SCH (11:00)
[2018-05-24] MEDS ORDERED: Levofloxacin 250mg IV 250 MG/50 ML BAG IV ONE (12:00)
[2018-05-24] MEDS ORDERED: Levofloxacin 250mg IV 250 MG/50 ML BAG IV SCH (12:00)
[2018-05-24] MEDS: ACETAMINOPHEN 650MG/RECT SUPP RECT PRN ×2 (14:07→19:41)
[2018-05-24] MEDS ORDERED: IBUPROFEN 100 MG/5 ML UCUP FT ONE (15:20)
--- NOTE | 2018-05-24 15:41 | PN ---
Date of Progress Note: 05/24/2018 Subjective: The patient was admitted with cardiac arrest, anasarca. The patient being on diuresis. Physical Examination: Vital Signs: When I saw the patient blood pressure was 147/57, pulse of 85, T-max 100.2. Patient newman d urine output of 4900, negative of 2500. Weight fortune been stable. Chest: Crackles bilateral. Heart: S1, S2. Systolic murmur. Abdomen: Soft nontender extremity plus edema. The patient on tube feeding with free water 200 every 6 hours. Laboratory Data: WBC 12.3, H and H 14.4/44.9, platelet 162. Sodium 150, potassium 3.3, bicarb 40, B UN 60, creatinine down to 1.5, glucose is still elevated of 303, calcium 7.3. Current Medications: The patient on include tube feed with Periactin, Levaquin 250 q. 24, Lasix 40 b .i.d., Tylenol, Zofran, pantoprazole, insulin, and albumin. Assessment And Plan: 1.Acute kidney injury secondary to cardiorenal poor perfusion ATN, questionable vanc. 2.Still patient on the upper volume side. Continue current diuresis. We will continue to monitor. 3.Anasarca. I am going to continue diuresis. Continue albumin to mobilize fluid from third space. 4.Hypernatremia secondary to diuresis and glucose diuresis. I am going to decrease the Lasix to b.i .d. and increase free water. 5.Hyperemia with pneumonia. Increase his Levaquin to 500 as kidney function has been improved. 6.Hypokalemia. We will supplement orally. 7.Respiratory failure. Continue current supportive care. 8.Cardiac arrest. We will follow up with the primary. ANNA MARIE/RENA Voice ID: [id number] Report ID: [id number]
[2018-05-24] MEDS: METOPROLOL TARTRATE 5 MG/5 ML INJ IV PRN (15:42)
[2018-05-25] MEDS: INSULIN -REGULAR HUMAN 50 UNIT/0.5 ML ML SQ SCH ×5 (00:06→23:22)
[2018-05-25] MEDS: GLUCERNA 1.2 CAL 1,000 ML BOT RTH SCH (00:15)
[2018-05-25] MEDS: ALBUTEROL 2.5 MG/3 ML NEB SOL NEB SCH ×3 (03:00→14:11)
[2018-05-25] MEDS: IPRATROPIUM BROM 0.5MG/2.5ML NEB SCH ×3 (03:00→14:11)
[2018-05-25 05:07] LABS: HBsAG Nonreactive (Nonreactive); HIV 1/2 Antibody Diff Not indicated.; Hepatitis A IgM Antibody Nonreactive
[2018-05-25 05:46] LABS: Absolute Lymphocytes (CBC) 1.3 K/uL (0.7-4.9); Absolute Monocytes 0.9 K/uL (0.1-1.3); Absolute Neutrophil 9.5 K/uL (1.8-8.0); Basophils % 0.2 % (0-1.3); Eosinophils % 0.2 % (0-4.4); Hematocrit 43.3 % (39.6-49.0); Lymphocytes % 11.2 % (15.3-44.8); MPV 10.8 fL (7.6-11.3); Monocytes % 7.9 % (3.3-12.3); RBC Red Blood Cell Count 4.91 M/uL (4.33-5.43)
[2018-05-25 06:24] LABS: Albumin 2.8 g/dL (3.4-5.0); Bilirubin Total 1.2 mg/dL (0.2-1.0); Magnesium 2.4 mg/dL (1.8-2.4); Phosphorus 1.6 mg/dL (2.5-4.9); Potassium 3.5 mmol/L (3.5-5.1); Protein, Total 5.5 g/dL (6.4-8.2)
[2018-05-25] MEDS ORDERED: D5W IV ONE (08:00)
[2018-05-25] MEDS ORDERED: POTASSIUM PHOS IV ONE (08:00)
--- NOTE | 2018-05-25 09:06 | P.PN ---
Subjective Date of Service: 05/25/18 Primary Care Provider: residential resident Chief Complaint: Cardiac arrest Subjective: Other (No significant change noted. Patient had fever with tachycardia yesterday. This has improved.) Physical Examination - Vital Signs Temperature: 99.3 F Blood Pressure: 125/56 Pulse: 97 Respirations: 16 Pulse Ox (%): 97 - Physical Exam General: Other (Patient remains intubated. Anasarca noted) HEENT: Atraumatic, Other (Edema to the face noted. Still with upward gaze.) Neck: Supple Respiratory: Crackles/rales (To the bases) Cardiovascular: Irregular heart rate/rhythm (Atrial fibrillation, rate controlled) Gastrointestinal: Normal bowel sounds, Soft and benign, Non-distended Neurological: Other (Anasarca noted. Some posturing noted) - Studies 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 Atrial fibrillation, chronic with hypertension Diabetes mellitus type 2, 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, age indeterminate Acute renal injury suspect chronic renal disease with noted hypernatremia and hypokalemia Elevated liver function etiology unknown Plan: Acute respiratory failure with cardiopulmonary arrest status post CPR likely secondary to septic/cardiogenic shock with possible aspiration pneumonia with noted sputum culture positive for Staph aureus and blood culture positive for Haemophilus influenza complicated with noted bilateral pleural effusion and pericardial effusion secondary to pulmonary edema with acute on chronic systolic CHF, ejection fraction 20%, and 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 Nephrology continues to adjust IV fluids. Patient on IV antibiotic therapy- Levaquin and Rocephin. Patient on basal insulin with better sugar control. Patient still with poor prognosis. Still pursuing long-term acute care facility placement. Social work to help getting in contact with state guardian to initiate process. It has been difficult to get in contact with state guardian. I have left a message with her. Will stress the importance of determining long-term acute care facility placement with the state guardian. Patient may require trach prior to discharge to long-term acute care facility. I will turn the service over to Dr. Millan tomorrow. I will go up of care with her. Atrial fibrillation, chronic with hypertension: Will monitor closely. Patient on Lovenox. Metoprolol to be given as needed. Diabetes mellitus type 2, insulin-dependent: Lantus recently adjusted with better diabetic control. Dietary to adjusted nutrition as well. Will continue Accu-Cheks and sliding scale. 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 Case discussed with Neurology last week. No need for repeat CT at this time. Await long-term acute care facility placement. Acute renal injury suspect chronic renal disease with hypernatremia and hypokalemia: Nephrology consulted. Patient now on Levaquin and Rocephin. Medications will need to be renally dosed. Pharmacy to monitor and adjust. Continue with IV fluid adjustment per Nephrology Elevated liver function, etiology unknown: Likely liver failure related to CHF and current condition. Overall improved. Will monitor closely. Time Spent Managing Pts Care (In Minutes): 55
[2018-05-25 09:31] LABS: Blood Morphology Comment NOT SEEN (NOT SEEN); Platelet Estimate ADEQ; Urine White Blood Cell Casts OK
[2018-05-25] MEDS: ALBUMIN HUMAN 25% 100 ML IV SCH ×2 (10:03→20:47)
[2018-05-25] MEDS: FUROSEMIDE 40 MG/4 ML VIAL IV SCH (10:04)
[2018-05-25] MEDS: INSULIN GLARGINE 100 UNITS/ML SQ SCH ×2 (10:04→20:47)
[2018-05-25] MEDS: PANTOPRAZOLE 40 MG INJ IVP SCH ×2 (10:04→20:47)
[2018-05-25] MEDS: Levofloxacin500mg IV 500 MG/100 ML BAG IV SCH (10:05)
[2018-05-25] MEDS: ENOXAPARIN 100 MG/ML SYR SQ SCH ×2 (10:05→20:48)
[2018-05-25] MEDS: CEFTRIAXONE/SWI 1gm 1 GM/10 ML SYR IV SCH (10:06)
[2018-05-25] MEDS: POLYVINYL ALCOHOL 1.4% 15 ML OPTH SCH ×3 (10:20→20:48)
[2018-05-25] MEDS: SCOPOLAMINE HYDROBROMIDE PATCH TD SCH (10:20)
--- NOTE | 2018-05-25 11:30 | RAD REPORT ---
EXAM DESCRIPTION: RAD - Chest Single View - 05/25/2018 6:35 am CLINICAL HISTORY: vented Chest pain. COMPARISON: Chest Single View dated 05/24/2018; Chest Single View dated 05/21/2018; Chest Single View da aleena 05/20/2018; Chest Single View dated 05/18/2018 FINDINGS: Portable technique limits examination quality. Tip of the ET tube is above the amol. Enteric tube descends in the stomach. Bibasilar lung opacitie s are present, greater on the right likely a combination of pleural fluid and/or infiltrate/atelectas is.Rounded radiodensity projecting over the upper right chest is presumably external to the patient. IMPRESSION: Mild worsening in bibasilar lung aeration since 05/24/2018, particularly on the right.
[2018-05-25] MEDS: FUROSEMIDE 20 MG/ 2ML VIAL IV SCH (12:46)
[2018-05-25] MEDS: NEPRO 1,000 ML BOT FT SCH (12:48)
[2018-05-25] MEDS ORDERED: FUROSEMIDE 40 MG/4 ML VIAL IV SCH (13:00)
[2018-05-25] MEDS: ACETAMINOPHEN 650MG/RECT SUPP RECT PRN (14:41)
[2018-05-25] MEDS ORDERED: ALBUTEROL 2.5 MG/3 ML NEB SOL NEB PRN (15:05)
[2018-05-25] MEDS ORDERED: IPRATROPIUM BROM 0.5MG/2.5ML NEB PRN (15:06)
[2018-05-25] MEDS ORDERED: METOPROLOL TARTRATE 5 MG/5 ML INJ IV STA (15:19)
--- NOTE | 2018-05-25 16:24 | PN ---
Date of Progress Note: 05/25/2018 Subjective: The patient admitted with encephalopathy, cardiac arrest, developed bacteremia, acute ki dney injury and hypernatremia. Physical Examination: Vital Signs: When I saw the patient, blood pressure of 125/56, pulse of 97, afebrile. Chest: Faint rales in the base. Heart: S1, S2. Regular. Systolic murmur. Abdomen: Soft, nontender. Extremities: +1 edema, more prominent on the upper extremity. Lower extremities, dressing, both leg edema has been subsided. Babinski, upward. Neuro: The patient on vent. Laboratory Data: WBC 11.9, H and H 14.2/43.3, platelet 172. Sodium 153, potassium 3.5, bicarb 44, B UN 59, creatinine 1.4, calcium 7.9, phosphorus 1.6. The patient had urine output of 4 L, negative of 1300. Current Medications: The patient on Glucerna, ceftriaxone, Levaquin 500, Lovenox, metoprolol, Lasix 40 daily. Assessment And Plan: 1.Acute kidney injury secondary to cardiorenal, poor perfusion. Acute tubular necrosis secondary to cardiogenic shock. The patient on the recovery phase, nonoliguric. Looked to me start to be on nor mal volume side as the patient requiring only 30% of FiO2. I am going to go ahead and decrease Lasix to 20 mg and we will monitor the patient. 2.Hypertension, used to be hypotensive with shock. Keep utilizing blood pressure for the diuresis. 3.Hypernatremia. I am going to change the tube feeding to Nepro to decrease the load of sodium. We will decrease Lasix to 20 mg and continue free water. We will follow up the patient. 4.Bacteremia. Continue current antibiotic dose appropriate. We will follow up. 5.Hypokalemia, hypophosphatemia, status post supplement. We will follow up. ANNA MARIE/RENA Voice ID: [id number] Report ID: [id number]
[2018-05-25] MEDS: FENTANYL CITR 100 MCG/2 ML IV PRN (21:20)
[2018-05-26 05:16] LABS: Absolute Lymphocytes (CBC) 1.4 K/uL (0.7-4.9); Absolute Monocytes 0.7 K/uL (0.1-1.3); Absolute Neutrophil 11.4 K/uL (1.8-8.0); Basophils % 0.2 % (0-1.3); Eosinophils % 0.2 % (0-4.4); Hematocrit 44.8 % (39.6-49.0); Lymphocytes % 10.1 % (15.3-44.8); MPV 10.5 fL (7.6-11.3); Monocytes % 5.3 % (3.3-12.3); RBC Red Blood Cell Count 5.04 M/uL (4.33-5.43)
[2018-05-26 05:40] LABS: Magnesium 2.6 mg/dL (1.8-2.4); Phosphorus 2.2 mg/dL (2.5-4.9); Potassium 3.4 mmol/L (3.5-5.1)
[2018-05-26] MEDS: INSULIN -REGULAR HUMAN 50 UNIT/0.5 ML ML SQ SCH ×3 (05:55→17:11)
[2018-05-26] MEDS: ACETAMINOPHEN 650MG/RECT SUPP RECT PRN (05:55)
[2018-05-26] MEDS ORDERED: POTASSIUM 25 MEQ EFFERV TAB FT ONE (06:30)
[2018-05-26 06:40] LABS: Anisocytosis 1+; Blood Morphology Comment NOTED (NOT SEEN); Platelet Estimate ADEQ
[2018-05-26] MEDS ORDERED: D5W IV ONE (08:00)
[2018-05-26] MEDS ORDERED: POTASSIUM PHOS IV ONE (08:00)
[2018-05-26] MEDS: ALBUMIN HUMAN 25% 100 ML IV SCH ×2 (08:08→20:30)
--- NOTE | 2018-05-26 08:25 | RAD REPORT ---
EXAM DESCRIPTION: RAD - Chest Single View - 05/26/2018 6:27 am CLINICAL HISTORY: vented Chest pain. COMPARISON: Chest Single View dated 05/25/2018; Chest Single View dated 05/24/2018; Chest Single View d ated 05/21/2018; Chest Single View dated 05/20/2018 FINDINGS: Portable technique limits examination quality. The tip of the ET tube is above the amol. Enteric tube descends into the stomach. Hazy opacificatio n of the inferior right hemithorax appears unchanged. Mild interstitial pulmonary edema seen. The hea rt is mildly enlarged in size.
[2018-05-26] MEDS: CEFTRIAXONE/SWI 1gm 1 GM/10 ML SYR IV SCH (08:28)
[2018-05-26] MEDS: Levofloxacin500mg IV 500 MG/100 ML BAG IV SCH (08:28)
[2018-05-26] MEDS: INSULIN GLARGINE 100 UNITS/ML SQ SCH ×2 (08:28→23:10)
[2018-05-26] MEDS: FUROSEMIDE 20 MG/ 2ML VIAL IV SCH (08:29)
[2018-05-26] MEDS: PANTOPRAZOLE 40 MG INJ IVP SCH ×2 (08:29→23:11)
[2018-05-26] MEDS: POLYVINYL ALCOHOL 1.4% 15 ML OPTH SCH ×3 (08:30→21:00)
[2018-05-26] MEDS: ENOXAPARIN 100 MG/ML SYR SQ SCH ×2 (08:30→23:16)
[2018-05-26] MEDS: METOPROLOL TAR 25 MG TAB PO SCH ×2 (09:43→17:11)
[2018-05-26 11:26] LABS: HIV AG/AB 4TH GEN Non-reactive (Non-reactive)
--- NOTE | 2018-05-26 15:45 | PN ---
Date of Progress Note: 05/26/2018 Subjective: The patient is seen and examined. Chart reviewed and case discussed with RN. No family is present at the bedside. The patient is not responsive, on the ventilator, on cooling blanket. The patient did have some runs of ventricular tachycardia. Code status: Full Medications: reviewed Objective: Vital Signs: Temperature 101, heart rate 106, blood pressure 128/55 , respirations 16, O2 100% on mechanical ventilation. General: Intubated, not sedated, nonresponsive. CV: S1, S2. Irregularly irregular. Peripheral pulses weak. Respiratory: Diminished breath sounds. No wheezing or stridor. Gastrointestinal: Abdomen is soft, nondistended, hypoactive bowel sounds. Extremities: No clubbing or cyanosis. No edema. Neuro: GCS 3. Labs: Sodium 154, potassium 3.4, chloride 105, CO2 42, BUN 61, creatinine 1.32 , glucose 232. Calcium is 8, phosphorus 2.2, magnesium 2.6. WBC 13.6, H and H 14.8 and 44.8, platelets 164, neutrophils 84%. Microbiology: Blood cultures growing out Haemophilus influenzae. Sputum cultures growing out staph aureus methicillin sensitive. Chest x-ray shows hazy infiltrate in right hemithorax, appears unchanged. ET tube above amol. Interstitial pulmonary edema seen. Heart mildly enlarged in size. Assessment And Plan: 1. Acute respiratory failure. The patient is currently on mechanical ventilation, not responsive. 2. Cardiopulmonary arrest status post cardiopulmonary resuscitation, likely secondary to septic or cardiogenic shock. 3. Possible aspiration pneumonia. Sputum culture positive for Staphylococcus aureus. 4. Bacteremia. Blood cultures positive for Haemophilus influenzae, complicated with bilateral pleural effusions and pericardial effusion. Continue antibiotics. 5. Acute on chronic systolic heart failure. The patient does have pulmonary edema. EF is 20%. We will continue diuresis. Monitor I's and O's. 6. 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 The patient did have some posturing yesterday. GCS is 3. The patient will need to be referred to LTAC for long-term placement. 7. Chronic atrial fibrillation. We will start on metoprolol 25 b.i.d. We will use Lopressor as needed. The patient is on Lovenox. 8. Diabetes mellitus type 2, insulin dependent. Continue Lantus. Continue Accu-Cheks and sliding scale insulin. The patient is on tube feeds. 9. Essential hypertension. We will continue p.r.n. medications. 10. History of cerebrovascular accident to the right cerebellar hemisphere per CT scan, age indeterminate, now with hypoxic ischemic encephalopathy, secondary to cardiopulmonary arrest. Overall, poor prognosis. 11. Acute renal injury. Appreciate Nephrology input. We will continue to monitor creatinine. Avoid NSAIDs. Continue IV fluids. 12. Hypernatremia. Sodium is over 150. We will adjust IV antibiotics as needed. Continue to monitor. We will discuss with Nephrology. 13. Hypokalemia. We will replace and monitor. 14. Elevated liver function, unclear etiology. Hepatitis panel is negative, may be related to passive congestion from congestive heart failure or hypoxia. 15. Deep vein thrombosis prophylaxis addressed. Refer to LTAC. The patient does not have any family members as then appointed a state guardian. Will need to be contacted further. BRADEN Voice ID: [id number] Report ID: [id number] MYLES
[2018-05-26 19:13] LABS: Potassium 3.7 mmol/L (3.5-5.1)
[2018-05-26] MEDS ORDERED: ENOXAPARIN 100 MG/ML SYR SQ ONE (23:27)
[2018-05-27] MEDS: INSULIN -REGULAR HUMAN 50 UNIT/0.5 ML ML SQ SCH ×4 (02:02→17:37)
--- NOTE | 2018-05-27 02:19 | PN ---
Date of Progress Note: 05/26/2018 Chief Complaint: Acute kidney injury moderately severe, nonoliguric associated with cardiorenal synd kera, renal hypoperfusion, acute tubular necrosis in setting of cardiogenic shock. The patient is in recovery phase with nonoliguric urine output. Renal function has not changed signi ficantly over last 24 hours. The patient has history of hypertension although the patient currently is in ICU and is recovering fr om hypotension. The patient was found to have bacteremia and was started on antibiotic for sepsis and septic shock. Review of Systems: Unobtainable. Physical Examination: General: The patient is lethargic. Lungs: Clear to auscultation bilaterally. Heart: S1, S2. Abdomen: Soft, benign. Extremities: 1+ edema in both legs. Laboratory Data: Hemoglobin 14.8, WBC 13.6, platelet count is 164,000. Chemistries showed sodium 15 4, potassium 3.4, chloride 105, CO2 of 42, BUN 61, creatinine 1.32, calcium 8.0, phosphorus 2.2, magn esium 2.6. Assessment And Plan: 1.Hypernatremia. Continue IV hydration to treat hypernatremia. Hold diuretic. 2.Respiratory status currently improving. 3.The patient has metabolic alkalosis. The patient may benefit from diuretic changes. 4.Hypokalemia. Continue treatment with potassium replacement, monitor magnesium level. 5.Sepsis, septic shock. Adjust antibiotics to renal function. WBCs improving. EB/MODL Voice ID: [id number] Report ID: [id number]
[2018-05-27 05:20] LABS: Absolute Lymphocytes (CBC) 1.1 K/uL (0.7-4.9); Absolute Monocytes 0.6 K/uL (0.1-1.3); Absolute Neutrophil 10.1 K/uL (1.8-8.0); Basophils % 0.2 % (0-1.3); Eosinophils % 0.5 % (0-4.4); Hematocrit 43.4 % (39.6-49.0); MPV 10.9 fL (7.6-11.3); Monocytes % 4.8 % (3.3-12.3); RBC Red Blood Cell Count 4.87 M/uL (4.33-5.43)
[2018-05-27 05:55] LABS: Albumin 2.6 g/dL (3.4-5.0); Bilirubin Total 0.8 mg/dL (0.2-1.0); Protein, Total 5.5 g/dL (6.4-8.2)
[2018-05-27] MEDS: METOPROLOL TAR 25 MG TAB PO SCH ×2 (06:00→17:37)
[2018-05-27] MEDS ORDERED: POTASSIUM 25 MEQ EFFERV TAB PO ONE ×4 (07:50→14:00)
[2018-05-27] MEDS: ALBUMIN HUMAN 25% 100 ML IV SCH ×2 (08:11→20:30)
[2018-05-27] MEDS: INSULIN GLARGINE 100 UNITS/ML SQ SCH ×2 (08:38→21:55)
[2018-05-27] MEDS: CEFTRIAXONE/SWI 1gm 1 GM/10 ML SYR IV SCH (08:39)
[2018-05-27] MEDS: Levofloxacin500mg IV 500 MG/100 ML BAG IV SCH (08:39)
[2018-05-27] MEDS: PANTOPRAZOLE 40 MG INJ IVP SCH ×2 (08:39→21:54)
[2018-05-27] MEDS: POLYVINYL ALCOHOL 1.4% 15 ML OPTH SCH ×3 (08:49→21:55)
--- NOTE | 2018-05-27 12:20 | RAD REPORT ---
EXAM DESCRIPTION: RAD - Chest Single View - 05/27/2018 3:50 am CLINICAL HISTORY: S/p picc insertion. COMPARISON: None FINDINGS: Left-sided PICC line is noted with its tip in the superior vena cava. Endotracheal tube an d nasogastric tubes are also present in satisfactory positions. The heart is normal in size. Calcification is seen in the aortic arch. The pulmonary vascularity is i s normal. The lungs are clear. No dense focal consolidation is seen. Right pleural effusion is noted. Areas of haziness is seen in the right lung base.. The osseous structures appear unremarkable. IMPRESSION: Right pleural effusion. Electronically signed by: Ines Faustin MD 05/27/2018 3:54 AM CDT Due to temporary technical issues with the PACS/Fluency reporting system, reports are being signed by the in house radiologist as a courtesy to ensure prompt reporting. The interpreting radiologist is f ully responsible for the content of the report.
[2018-05-27] MEDS: D5W 1,000 ML IV SCH (13:19)
--- NOTE | 2018-05-27 18:17 | PN ---
Date of Progress Note: 05/27/2018 Subjective: The patient is doing the same. Still poor response. Still on vent. Physical Examination: Vital Signs: Blood pressure 106/52, pulse of 92. Chest: Clear to auscultation. Heart: S1, S2. Regular. Abdomen: Soft, nontender. Extremities: No edema. Wrinkles as residual of his edema. Neuro: No response. Babinski's upwards. Laboratory Data: WBC 11.8, H and H 13.8/43.4, platelet 165. Sodium 153, potassium 3, bicarb 42, BUN 65, creatinine 1.1, calcium 8.2. Current Medications: The patient is on, 1.Free water 300 q.4. 2.Nepro. 3.Ceftriaxone. 4.Levaquin. 5.Metoprolol 25 b.i.d. 6.Pantoprazole. 7.Fentanyl. Assessment And Plan: 1.Acute kidney injury secondary to prerenal, recovered, resolved. 2.Hypernatremia secondary to over diuresis. Keep holding Lasix. Increase free water and start the patient on D5. We will follow up. 3.Anoxic encephalopathy. Continue supportive care. 4.Hypokalemia. We will supplement. ANNA MARIE/RENA Voice ID: [id number] Report ID: [id number]
--- NOTE | 2018-05-27 21:53 | P.PN ---
Subjective Date of Service: 05/27/18 Primary Care Provider: senior care resident Chief Complaint: Cardiac arrest Subjective: No new changes Patient seen and examined at bedside. No family at bedside. Chart reviewed and case discussed with nursing staff. Physical Examination - Vital Signs Temperature: 97.6 F Blood Pressure: 104/53 Pulse: 84 Respirations: 16 Pulse Ox (%): 98 - Physical Exam General: Other (Vented, intubated) HEENT: PERRLA Neck: Supple Respiratory: Other Cardiovascular: Edema (Generalized) Gastrointestinal: Hypoactive Musculoskeletal: Swelling Neurological: Other (GCS 3) - Studies Medications List Reviewed: Yes Assessment And Plan - Plan Acute respiratory failure. The patient is currently on mechanical ventilation, not responsive. Cardiopulmonary arrest status post cardiopulmonary resuscitation, likely secondary to septic or cardiogenic shock. Possible aspiration pneumonia. Sputum culture positive for Staphylococcus aureus. Bacteremia. Blood cultures positive for Haemophilus influenzae, complicated with bilateral pleural effusions and pericardial effusion. Continue antibiotics. Acute on chronic systolic heart failure. The patient does have pulmonary edema. EF is 20%. We will continue diuresis. Monitor I's and O's. 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 The patient did have some posturing yesterday. GCS is 3. The patient will need to be referred to LTAC for long-term placement. pending Chronic atrial fibrillation. We will start on metoprolol 25 b.i.d. We will use Lopressor as needed. The patient is on Lovenox. Diabetes mellitus type 2, insulin dependent. Continue Lantus. Continue Accu- Cheks and sliding scale insulin. The patient is on tube feeds. Essential hypertension. We will continue p.r.n. medications. History of cerebrovascular accident to the right cerebellar hemisphere per CT scan, age indeterminate, now with hypoxic ischemic encephalopathy, secondary to cardiopulmonary arrest. Overall, poor prognosis. Acute renal injury. Appreciate Nephrology input. We will continue to monitor creatinine. Avoid NSAIDs. Continue IV fluids. Hypernatremia. Sodium is over 150. We will adjust IV fluids as needed. Continue to monitor. We will discuss with Nephrology. Hypokalemia. We will replace and monitor. Elevated liver function, unclear etiology. Hepatitis panel is negative, may be related to passive congestion from congestive heart failure or hypoxia. Deep vein thrombosis prophylaxis addressed. Refer to LTAC. The patient does not have any family members as then appointed a state guardian. Pending transfer to LTAC. Overall, poor prognosis Discharge Plan: LTAC Physician Review Additional Text: Impression: Acute respiratory failure with cardiopulmonary arrest status post CPR likely secondary to septic/cardiogenic shock with possible aspiration pneumonia with noted sputum culture positive for Staph aureus and blood culture positive for Haemophilus influenza complicated with noted bilateral pleural effusion and pericardial effusion secondary to pulmonary edema with acute on chronic systolic CHF, ejection fraction 20%, and 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 Atrial fibrillation, chronic with hypertension Diabetes mellitus type 2, 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, age indeterminate Acute renal injury suspect chronic renal disease with noted hypernatremia and hypokalemia Elevated liver function etiology unknown Plan: Acute respiratory failure with cardiopulmonary arrest status post CPR likely secondary to septic/cardiogenic shock with possible aspiration pneumonia with noted sputum culture positive for Staph aureus and blood culture positive for Haemophilus influenza complicated with noted bilateral pleural effusion and pericardial effusion secondary to pulmonary edema with acute on chronic systolic CHF, ejection fraction 20%, and 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 Nephrology continues to adjust IV fluids. Patient on IV antibiotic therapy- Levaquin and Rocephin. Patient on basal insulin with better sugar control. Patient still with poor prognosis. Still pursuing long-term acute care facility placement. Social work to help getting in contact with state guardian to initiate process. It has been difficult to get in contact with state guardian. I have left a message with her. Will stress the importance of determining long-term acute care facility placement with the state guardian. Patient may require trach prior to discharge to long-term acute care facility. I will turn the service over to Dr. Millan tomorrow. I will go up of care with her. Atrial fibrillation, chronic with hypertension: Will monitor closely. Patient on Lovenox. Metoprolol to be given as needed. Diabetes mellitus type 2, insulin-dependent: Lantus recently adjusted with better diabetic control. Dietary to adjusted nutrition as well. Will continue Accu-Cheks and sliding scale. 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 Case discussed with Neurology last week. No need for repeat CT at this time. Await long-term acute care facility placement. Acute renal injury suspect chronic renal disease with hypernatremia and hypokalemia: Nephrology consulted. Patient now on Levaquin and Rocephin. Medications will need to be renally dosed. Pharmacy to monitor and adjust. Continue with IV fluid adjustment per Nephrology Elevated liver function, etiology unknown: Likely liver failure related to CHF and current condition. Overall improved. Will monitor closely.
[2018-05-28] MEDS: INSULIN -REGULAR HUMAN 50 UNIT/0.5 ML ML SQ SCH ×4 (01:15→17:41)
[2018-05-28] MEDS: NEPRO 1,000 ML BOT FT SCH (04:59)
[2018-05-28] MEDS: METOPROLOL TAR 25 MG TAB PO SCH ×2 (06:09→17:42)
[2018-05-28 06:48] LABS: Absolute Lymphocytes (CBC) 1.1 K/uL (0.7-4.9); Absolute Monocytes 0.5 K/uL (0.1-1.3); Absolute Neutrophil 9.1 K/uL (1.8-8.0); Eosinophils % 0.4 % (0-4.4); Hematocrit 37.8 % (39.6-49.0); MPV 11.5 fL (7.6-11.3); Monocytes % 4.9 % (3.3-12.3); RBC Red Blood Cell Count 4.28 M/uL (4.33-5.43)
[2018-05-28 07:05] LABS: Magnesium 2.8 mg/dL (1.8-2.4); Phosphorus 2.2 mg/dL (2.5-4.9)
[2018-05-28] MEDS: ALBUMIN HUMAN 25% 100 ML IV SCH (08:30)
[2018-05-28] MEDS ORDERED: POTASSIUM PHOS IN 0.9 % NACL 15 MMOL/250 ML BAG IV ONE (08:32)
[2018-05-28] MEDS: PANTOPRAZOLE 40 MG INJ IVP SCH (08:58)
[2018-05-28] MEDS: CEFTRIAXONE/SWI 1gm 1 GM/10 ML SYR IV SCH (08:58)
[2018-05-28] MEDS: D5W 1,000 ML IV SCH (09:01)
[2018-05-28] MEDS: INSULIN GLARGINE 100 UNITS/ML SQ SCH (09:01)
[2018-05-28] MEDS: Levofloxacin500mg IV 500 MG/100 ML BAG IV SCH (09:02)
[2018-05-28] MEDS: POLYVINYL ALCOHOL 1.4% 15 ML OPTH SCH ×2 (09:03→17:42)
[2018-05-28] MEDS: SCOPOLAMINE HYDROBROMIDE PATCH TD SCH (09:22)
[2018-05-28] MEDS ORDERED: POTASSIUM 25 MEQ EFFERV TAB PO ONE (10:56)
[2018-05-28] MEDS ORDERED: D5W 1,000 ML IV SCH (11:00)
--- NOTE | 2018-05-28 15:57 | PN ---
Date of Progress Note: 05/28/2018 Subjective: The patient was admitted with cardiac arrest, CVA, anoxic encephalopathy, developed acut e kidney injury, recovered, resolved. Currently has hypernatremia. We started the patient on D5 sod ium, started to trend down currently. Physical Examination: Vital Signs: When I saw the patient, blood pressure 131/73, pulse of 91, afebrile. The patient had urine output of 3100. The patient positive only 140. Chest: Clear to auscultation. Heart: S1 and S2. Regular rhythm. Abdomen: Soft, nontender. Extremity: Edema on the upper extremity. Lower extremities, no edema. Dressing both legs. Laboratory Data: WBC 10.7, H and H 12.3/37.8, platelets 171. Sodium 150, potassium 3, bicarb 40, BU N 63, creatinine 1, GFR of 68, calcium 7.8, phosphorus 2.2, magnesium 2.8. Current Medications: The patient on D5 at 50 per hour. The patient on Napro, ceftriaxone, Levaquin 500 daily, albumin, metoprolol 25 b.i.d., pantoprazole, magnesium oxide. Assessment And Plan: 1.Acute kidney injury secondary to prerenal, recovered, resolved. 2.Hypernatremia secondary to intravascular depletion/polyuric state after acute tubular necrosis/izabel tral. I am going to increase D5 to 75 per hour. Continue free water 300 q.4. We will monitor. 3.Hypokalemia. 4.Hypophosphatemia. We will supplement. 5.Anoxic encephalopathy. Continue supportive care. KAT Voice ID: [id number] Report ID: [id number]
--- NOTE | 2018-05-28 17:42 | RAD REPORT ---
EXAM DESCRIPTION: RAD - Chest Single View - 05/28/2018 5:21 pm CLINICAL HISTORY: Shortness of breath, volume overload COMPARISON: May 27, May 26 TECHNIQUE: AP portable chest image was obtained 1657 hours . FINDINGS: ETT and NG tube remain in place. Cardiac silhouette is slightly diminished from comparison . Vasculature remains prominent. Patient has continued prominence of the interstitial markings. Right perihilar focal opacification is present slightly increased from prior imaging. Patient can be monit ored for developing pneumonia. This may be remnant atelectasis. Patient has had bilateral pleural eff usions on prior imaging. No pneumothorax. No acute bony abnormality seen. No acute aortic findings suspected. IMPRESSION: Failure/ volume overload pattern is not substantially different from the prior day kenji rison. More focal opacification evident and the right perihilar region. This is probably atelectasis but pat ient can be monitored on evaluated for developing pneumonia.
--- NOTE | 2018-05-28 18:36 | P.PN ---
Subjective Date of Service: 05/28/18 Primary Care Provider: detention resident Chief Complaint: Cardiac arrest Subjective: No new changes Patient seen and examined at bedside. No family at bedside. Chart reviewed and case discussed with nursing staff. Review of Systems 10-point ROS is otherwise unremarkable Physical Examination - Vital Signs Temperature: 97.6 F Blood Pressure: 104/53 Pulse: 84 Respirations: 16 Pulse Ox (%): 98 - Physical Exam General: Comatose HEENT: PERRLA Neck: JVD not distended Respiratory: Other (Intubated/vent) Cardiovascular: Edema (Generalized) Gastrointestinal: Hypoactive Musculoskeletal: Swelling (Generalized) Integumentary: Skin breakdown - Studies Medications List Reviewed: Yes Assessment And Plan - Plan Acute respiratory failure. The patient is currently on mechanical ventilation, not responsive. Cardiopulmonary arrest status post cardiopulmonary resuscitation, likely secondary to septic or cardiogenic shock. Possible aspiration pneumonia. Sputum culture positive for Staphylococcus aureus. Bacteremia. Blood cultures positive for Haemophilus influenzae, complicated with bilateral pleural effusions and pericardial effusion. Continue antibiotics. Acute on chronic systolic heart failure. The patient does have pulmonary edema. EF is 20%. We will continue diuresis. Monitor I's and O's. 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 The patient did have some posturing yesterday. GCS is 3. The patient will need to be referred to LTAC for long-term placement. pending Chronic atrial fibrillation. We will start on metoprolol 25 b.i.d. We will use Lopressor as needed. The patient is on Lovenox. Diabetes mellitus type 2, insulin dependent. Continue Lantus. Continue Accu- Cheks and sliding scale insulin. The patient is on tube feeds. Essential hypertension. We will continue p.r.n. medications. History of cerebrovascular accident to the right cerebellar hemisphere per CT scan, age indeterminate, now with hypoxic ischemic encephalopathy, secondary to cardiopulmonary arrest. Overall, poor prognosis. Acute renal injury. Appreciate Nephrology input. We will continue to monitor creatinine. Avoid NSAIDs. Continue IV fluids. Hypernatremia. Sodium is over 150. We will adjust IV fluids as needed. Continue to monitor. We will discuss with Nephrology. Hypokalemia. We will replace and monitor. Elevated liver function, unclear etiology. Hepatitis panel is negative, may be related to passive congestion from congestive heart failure or hypoxia. Deep vein thrombosis prophylaxis addressed. Refer to LTAC. The patient does not have any family members as then appointed a state guardian. Pending transfer to LTAC. Overall, poor prognosis Discharge Plan: LTAC
[2018-05-28 22:19] LABS: Albumin, (SPE) 2.6 g/dL (3.8-4.8); Alpha-1-Globulins 0.4 g/dL (0.2-0.3); Alpha-2-Globulins 0.6 g/dL (0.5-0.9); Gamma Globulins 0.8 g/dL (0.8-1.7); INTERPRETATION REPORT
[2018-05-29 11:19] LABS: P-ANCA Anti-Myeloperoxidase Ab <1.0 AI (<1.0)
== END 2018-05-28 20:06 | DRG 870 ==
LOC: ER 23:07 → ERHOLD 05-19 00:36 → 3RD-ICU 05-19 02:28
PROVIDERS: ADMIT Hospitalist; ATTEND Family Medicine
PROC: 5A1955Z Respiratory Ventilation, Greater than 96 Consecutive Hours (ICD-10-PCS; principal; 2018-05-19)
PROC: 0BH17EZ Insertion of Endotracheal Airway into Trachea, Via Natural or Artificial Opening (ICD-10-PCS; 2018-05-19)
PROC: 06HM33Z Insertion of Infusion Device into Right Femoral Vein, Percutaneous Approach (ICD-10-PCS; 2018-05-19)
PROC: 0DH67UZ Insertion of Feeding Device into Stomach, Via Natural or Artificial Opening (ICD-10-PCS; 2018-05-19)
PROC: 3E0G76Z Introduction of Nutritional Substance into Upper GI, Via Natural or Artificial Opening (ICD-10-PCS; 2018-05-19)
PROC: 02HV33Z Insertion of Infusion Device into Superior Vena Cava, Percutaneous Approach (ICD-10-PCS; 2018-05-27)
PROC: B548ZZA Ultrasonography of Superior Vena Cava, Guidance (ICD-10-PCS; 2018-05-27)
DX: A41.3 Sepsis due to Hemophilus influenzae (principal); R57.0 Cardiogenic shock; J69.0 Pneumonitis due to inhalation of food and vomit; J96.00 Acute respiratory failure, unspecified whether with hypoxia or hypercapnia; I50.23 Acute on chronic systolic (congestive) heart failure; N17.0 Acute kidney failure with tubular necrosis; R65.21 Severe sepsis with septic shock; J90 Pleural effusion, not elsewhere classified; I31.3 Pericardial effusion (noninflammatory); G93.1 Anoxic brain damage, not elsewhere classified; N17.9 Acute kidney failure, unspecified; P91.62 Moderate hypoxic ischemic encephalopathy [HIE]; E44.0 Moderate protein-calorie malnutrition; E87.0 Hyperosmolality and hypernatremia; E87.3 Alkalosis; I42.9 Cardiomyopathy, unspecified; I48.2 Chronic atrial fibrillation; Z79.01 Long term (current) use of anticoagulants; Z86.73 Personal history of transient ischemic attack (TIA), and cerebral infarction without residual deficits; E11.9 Type 2 diabetes mellitus without complications; Z79.4 Long term (current) use of insulin; R94.5 Abnormal results of liver function studies; L89.302 Pressure ulcer of unspecified buttock, stage 2; I11.0 Hypertensive heart disease with heart failure; Z16.11 Resistance to penicillins; T36.8X5A Adverse effect of other systemic antibiotics, initial encounter; Y92.230 Patient room in hospital as the place of occurrence of the external cause; E87.6 Hypokalemia; E83.39 Other disorders of phosphorus metabolism; B95.61 Methicillin susceptible Staphylococcus aureus infection as the cause of diseases classified elsewhere; Z68.28 Body mass index [BMI] 28.0-28.9, adult
CPT/HCPCS: 31500; 36415; 51702; 70450; 71045; 71250; 72125; 74176; 76770; 80048; 80053; 80061; 80074; 80076; 80202; 81003; 81015; 82550; 82570; 82805; 82962; 83520; 83605; 83735; 83880; 84100; 84132; 84145; 84156; 84165; 84439; 84443; 84484; 85025; 85610; 85730; 86021; 86038; 86160; 86334; 86335; 86430; 87040; 87070; 87077; 87086; 87088; 87184; 87186; 87205; 87389; 92950; 93005; 93306; 94002; 94003; 94640; 95816; 99291; C9113; J0171; J0692; J0696; J1650; J1720; J1940; J2543; J3010; J7030; J7060; P9047